=== PATIENT | male | born 1990 | race Two or more races ===

== ENCOUNTER 2016-08-14 16:27 | Emergency (ER) | payer OTHER ==
[2016-08-14 17:00] VITALS: BP 121/75; PULSE 77; TEMP 98.7; BMI 25.6
--- NOTE | 2016-08-14 17:25 | PDOC ---
[id number] No Limitations - History of Present Illness Initial Comments: 08/14/16 17:28 The patient is a '26 year-old male with a significant past medical history of gastritis who presents to the emergency department for evaluation of abdominal pain for the past 2 weeks. Patient reports epigastric abdominal pain, described as sharp in nature, intermittent and non-radiating with a 7/10 in severity with associated nausea and vomiting. Patient reports that he noted blood in his episode of emesis, for which he had never experienced before Patient denies new foods/sick contacts. Patient denies alcohol intake. No other complaints. He denies chest pain, cough, shortness of breath, headache He denies changes in bowel habits, dysuria, hematuria, urinary frequency/urgency , flank pain, testicular pain or penile discharge. <Maria G Vidal - Last Filed: 08/14/16 18:34> <Tank Chavez - Last Filed: 08/15/16 10:32> - General Chief Complaint: Pain Stated Complaint: ABD PAIN/VOMITING BLOOD Past History <Maria G Vidal - Last Filed: 08/14/16 18:34> - Past Medical History Anemia: No Asthma: Yes (albuterol) Cancer: No Cardiac Disorders: No CVA: No COPD: No CHF: No Dementia: No Diabetes: No GI Disorders: No Disorders: No HTN: No Hypercholesterolemia: No Kidney Stones: No Liver Disease: No Suicide Attempt (Hx): No Seizures: No Thyroid Disease: No - Surgical History Abdominal Surgery: No Appendectomy: No Cardiac Surgery: No Cholecystectomy: No Lung Surgery: No Neurologic Surgery: No Orthopedic Surgery: No - Reproductive History Testicular Surgery: No - Immunization History Td Vaccination: (unknown) TDAP Vaccination: (unknown) Immunization Up to Date: Yes - Psycho/Social/Smoking Cessation Hx Anxiety: Yes Suicidal Ideation: No Smoking Status: Yes Smoking History: Current every day smoker Years of Tobacco Use: 0 Have you smoked in the past 12 months: Yes Number of Cigarettes Smoked Daily: 10 Cigars Per Day: 0 Information on smoking cessation initiated: No 'Breaking Loose' booklet given: 04/21/14 Hx Alcohol Use: Yes (eun) Drug/Substance Use Hx: Yes (heroin/cocaine/marijuana) Substance Use Type: Cocaine, Heroin, Marijuana Hx Substance Use Treatment: Yes ([facility] 08/2013) <Tank Chavez - Last Filed: 08/15/16 10:32> - Past Medical History Allergies/Adverse Reactions: Allergies Allergy/AdvReac Type Severity Reaction Status Date / Time Fish Containing Products Allergy Severe Difficulty Verified 08/14/16 16:59 [Fish Product Derivatives] Breathing shellfish derived Allergy Severe Difficulty Verified 08/14/16 16:59 [Shellfish Derived] Breathing No Known Drug Allergies Allergy Verified 08/14/16 16:59 mushroom Allergy Severe Swelling Uncoded 08/14/16 16:59 NKDA Allergy Uncoded 08/14/16 16:59 Home Medications: Ambulatory Orders Albuterol Sulfate Inhaler - [Ventolin HFA Inhaler -] 2 inh PO Q4H PRN 09/11/13 Quetiapine Fumarate [Seroquel -] 100 mg PO HS #30 tab 04/23/14 Famotidine [Pepcid] 40 mg PO BID #30 tablet 08/14/16 Tramadol HCl [Ultram -] 50 mg PO Q6H #10 tablet MDD 4 08/14/16 Review of Systems - Review of Systems Able to Perform ROS?: Yes Comments:: 08/14/16 17:28 GENERAL/CONSTITUTIONAL: No fever or chills. No weakness. HEAD, EYES, EARS, NOSE AND THROAT: No change in vision. No ear pain or discharge. No sore throat. CARDIOVASCULAR: No chest pain or shortness of breath. RESPIRATORY: No cough, wheezing, or hemoptysis. GASTROINTESTINAL: Yes: +Abdominal Pain. +Nausea. +Vomiting. No diarrhea or constipation. GENITOURINARY: No dysuria, frequency, or change in urination. MUSCULOSKELETAL: No joint or muscle swelling or pain. No neck or back pain. SKIN: No rash NEUROLOGIC: No headache, vertigo, loss of consciousness, or change in strength/ sensation. ENDOCRINE: No increased thirst. No abnormal weight change. HEMATOLOGIC/LYMPHATIC: No anemia, easy bleeding, or history of blood clots. ALLERGIC/IMMUNOLOGIC: No hives or skin allergy. <Maria G Vidal - Last Filed: 08/14/16 18:34> *Physical Exam - Vital Signs Last Vital Signs Temp Pulse Resp BP Pulse Ox 98.7 F 77 18 121/75 100 08/14/16 16:56 08/14/16 16:56 08/14/16 16:56 08/14/16 16:56 08/14/16 16:56 - Physical Exam Comments: 08/14/16 17:28 GENERAL: Awake, alert, and fully oriented, in no acute distress HEAD: No signs of trauma EYES: PERRLA, EOMI, sclera anicteric, conjunctiva clear ENT: Auricles normal inspection, hearing grossly normal, nares patent, oropharynx clear without exudates. Moist mucosa NECK: Normal ROM, supple, no lymphadenopathy, JVD, or masses LUNGS: Breath sounds equal, clear to auscultation bilaterally. No wheezes, and no crackles HEART: Regular rate and rhythm, normal S1 and S2, no murmurs, rubs or gallops ABDOMEN: Soft, epigastric tenderness to palpation, normoactive bowel sounds. No guarding, no rebound. No masses EXTREMITIES: Normal range of motion, no edema. No clubbing or cyanosis. No cords, erythema, or tenderness NEUROLOGICAL: Cranial nerves II through XII grossly intact. Normal speech. RECTAL: Light brown stool in the rectal vault. No blood. <Maria G Vidal - Last Filed: 08/14/16 18:34> - Vital Signs Last Vital Signs Temp Pulse Resp BP Pulse Ox 98.7 F 77 18 121/75 100 08/14/16 16:56 08/14/16 16:56 08/14/16 16:56 08/14/16 16:56 08/14/16 16:56 <Tank Chavez - Last Filed: 08/15/16 10:32> ED Treatment Course - LABORATORY CBC & Chemistry Diagram: 08/14/16 18:47 08/14/16 18:47 <Tank Chavez - Last Filed: 08/15/16 10:32> Medical Decision Making - Medical Decision Making 08/14/16 18:35 Patient noted to have an appetite and requesting a turkey sandwich with mayonnaise, orange juice and fareed crackers. <aMria G Vidal - Last Filed: 08/14/16 18:34> *DC/Admit/Observation/Transfer - Attestations Scribe Attestion: 08/14/16 17:29 Documentation prepared by Maria G Vidal, acting as medical van driver for Tank Chavez MD. <VidalMaria G - Last Filed: 08/14/16 18:34> - Discharge Dispostion Admit: No <Tank Chavez - Last Filed: 08/15/16 10:32> Diagnosis at time of Disposition: Abdominal pain Qualifiers: Abdominal location: generalized Qualified Code(s): R10.84 - Generalized abdominal pain - Discharge Dispostion Disposition: HOME Condition at time of disposition: Stable - Prescriptions Prescriptions: Famotidine [Pepcid] 40 mg PO BID #30 tablet Tramadol HCl [Ultram -] 50 mg PO Q6H #10 tablet MDD 4 - Referrals Referrals: Filiberto Eason MD [Staff Physician] - - Patient Instructions Printed Discharge Instructions: DI for Abdominal Pain-Adult
[2016-08-14] MEDS ORDERED: SODIUM CHLORIDE 1,000 ML IV SCH (17:30)
[2016-08-14] MEDS ORDERED: FAMOTIDINE 20 MG/50 ML IVPB 50 ML IVPB ONE ×2 (18:11→18:19)
[2016-08-14 18:59] LABS: BASOPHIL 0.3 % (0-2.0); EOSINOPHIL 2.6 % (0-4.5); MCH 29.5 pg (25.7-33.7); MCHC 32.5 g/dl (32.0-35.9); MEAN PLT VOLUME 9.5 fl (7.5-11.1); NEUTROPHILS 66.5 % (42.8-82.8); PLATELET COUNT 246 K/MM3 (134-434); RDW 12.3 % (11.9-15.9); WHITE BLOOD COUNT 9.2 K/mm3 (4.0-10.0)
[2016-08-14 19:32] LABS: ALBUMIN 4.1 g/dl (3.4-5.0); ANION GAP 5 (8-16); BILIRUBIN,TOTAL 0.6 mg/dL (0.2-1.0); CALCIUM 9.1 mg/dL (8.5-10.1); CO2 30 mmol/L (21-32); CREATININE 0.7 mg/dL (0.7-1.3); GLUCOSE,RANDOM 111 mg/dL (74-106); SGOT/AST 17 U/L (15-37); SGPT/ALT 39 U/L (12-78); TOT PROT 7.6 g/dl (6.4-8.2)
[2016-08-14 19:33] LABS: ALK PHOS 61 U/L (45-117)
[2016-08-14 19:41] LABS: INR 1.14 (0.82-1.09); PROTHROMBIN TIME (PATIENT) 12.6 SEC (9.98-11.88)
[2016-08-14 19:43] LABS: ACTIVATED PTT 33.9 SECONDS (26.9-34.4)
--- NOTE | 2016-08-14 20:38 | PDOC ---
*Physical Exam - Vital Signs Last Vital Signs Temp Pulse Resp BP Pulse Ox 98.7 F 77 18 121/75 100 08/14/16 16:56 08/14/16 16:56 08/14/16 16:56 08/14/16 16:56 08/14/16 16:56 ED Treatment Course - LABORATORY CBC & Chemistry Diagram: 08/14/16 18:47 08/14/16 18:47 - ADDITIONAL ORDERS Additional order review: Laboratory Results 08/14/16 08/14/16 08/14/16 18:47 18:47 18:47 INR 1.14 PTT (Actin FS) 33.9 Sodium 139 Potassium 4.3 Chloride 104 Carbon Dioxide 30 Anion Gap 5 L BUN 11 D Creatinine 0.7 Creat Clearance w eGFR > 60 Random Glucose 111 H Calcium 9.1 Total Bilirubin 0.6 D AST 17 D ALT 39 D Alkaline Phosphatase 61 Total Protein 7.6 Albumin 4.1 Lipase 59 L Stool Occult Blood Blood Type B POSITIVE Antibody Screen Negative 08/14/16 17:48 INR PTT (Actin FS) Sodium Potassium Chloride Carbon Dioxide Anion Gap BUN Creatinine Creat Clearance w eGFR Random Glucose Calcium Total Bilirubin AST ALT Alkaline Phosphatase Total Protein Albumin Lipase Stool Occult Blood Negative Blood Type Antibody Screen 08/14/16 18:47 RBC 5.24 MCV 91.0 MCHC 32.5 RDW 12.3 MPV 9.5 D Neutrophils % 66.5 D Lymphocytes % 25.4 D Monocytes % 5.2 D Eosinophils % 2.6 D Basophils % 0.3 D - Medications Given in the ED: ED Medications Discontinued Medications Generic Name Dose Route Start Last Admin Trade Name Freq PRN Reason Stop Dose Admin Famotidine/Sodium Chloride 50 mls @ 100 mls/hr 08/14/16 18:11 08/14/16 18:54 Pepcid 20 Mg Premixed Ivpb - IVPB 08/14/16 18:40 100 mls/hr ONCE ONE Administration *DC/Admit/Observation/Transfer Diagnosis at time of Disposition: Abdominal pain Qualifiers: Abdominal location: generalized Qualified Code(s): R10.84 - Generalized abdominal pain - Discharge Dispostion Disposition: HOME Condition at time of disposition: Stable Admit: No - Referrals Referrals: Filiberto Eason MD [Staff Physician] - - Patient Instructions Printed Discharge Instructions: DI for Abdominal Pain-Adult
[2016-08-14] MEDS ORDERED: traMADol HCL 50 MG TABLET PO ONE (21:23)
[2016-08-14] MEDS ORDERED: traMADol HCL 50 MG TABLET ONE (21:36)
== END 2016-08-14 21:42 | disposition home or self-care (01) ==
LOC: JER 16:27
PROC: 3E033GC Introduction of Other Therapeutic Substance into Peripheral Vein, Percutaneous Approach (ICD-10-PCS; principal; 2016-08-14)
DX: R10.84 Generalized abdominal pain (principal); J45.909 Unspecified asthma, uncomplicated
CPT/HCPCS: 36415; 80053; 81003; 82272; 83690; 85025; 85610; 85730; 86850; 86900; 86901; 96365; 99282-25

== ENCOUNTER 2016-11-25 11:03 | Inpatient (IN) | payer OTHER ==
[2016-11-25 12:01] VITALS: BMI 25.7
--- NOTE | 2016-11-25 12:44 | HP ---
CIWA Score - CIWA Score Nausea/Vomitin-Mild Nausea/No Vomiting Muscle Tremors: 4-Moderate,w/Arms Extend Anxiety: 4-Mod. Anxious/Guarded Agitation: 1-Slight > Activity Paroxysmal Sweats: 1-Minimal Palms Moist Orientation: 1-Uncertain about Date Tacttile Disturbances: 1-Very Mild Itch/Numbness Auditory Disturbances: 1-Very Mild Visual Disturbances: 1-Very Mild Sensitivity Headache: 1-Very Mild CIWA-Ar Total Score: 16 Admission ROS BHS - HPI Chief Complaint: I can't keep away from it on my own, I need to be here, I need help Allergies/Adverse Reactions: Allergies Allergy/AdvReac Type Severity Reaction Status Date / Time Fish Containing Products Allergy Severe Difficulty Verified 08/14/16 16:59 [Fish Product Derivatives] Breathing shellfish derived Allergy Severe Difficulty Verified 08/14/16 16:59 [Shellfish Derived] Breathing No Known Drug Allergies Allergy Verified 08/14/16 16:59 mushroom Allergy Severe Swelling Uncoded 08/14/16 16:59 NKDA Allergy Uncoded 08/14/16 16:59 History of Present Illness: 26 yo gentleman here for detox from alcohol, cocaine and xanax. Patient using heroin but on methadone program at [facility] on 60mg, dosed today, goes daily - phone number: [phone], opens at 7:30am -10:30am Sunday (tomorrow). No seizures, does have black outs. This is one of multiple admissions, was also in [facility] [id number]. Exam Limitations: Clinical Condition - Ebola screening Have you traveled outside of the country in the last 21 days: No Have you had contact with anyone from an Ebola affected area: No Have you been sick,other than usual withdrawal symptoms: No Do you have a fever: No - Review of Systems Constitutional: Loss of Appetite, Malaise, Changes in sleep, Unexplained wgt Loss EENT: reports: Nose Congestion Respiratory: reports: No Symptoms reported Cardiac: reports: Chest Tightness GI: reports: No Symptoms Reported : reports: Frequency Musculoskeletal: reports: No Symptoms Reported Integumentary: reports: No Symptoms Reported Neuro: reports: Headache, Tremors, Weakness Endocrine: reports: No Symptoms Reported Hematology: reports: No Symptoms Reported Psychiatric: reports: Judgement Intact, Mood/Affect Appropiate, Orientated x3, Anxious Other Systems: Reviewed and Negative Patient History - Patient Medical History Hx Anemia: No Hx Asthma: Yes (albuterol) Hx Chronic Obstructive Pulmonary Disease (COPD): No Hx Cancer: No Hx Cardiac Disorders: No Hx Congestive Heart Failure: No Hx Hypertension: No Hx Hypercholesterolemia: No Hx Pacemaker: No HX Cerebrovascular Accident: No Hx Seizures: No Hx Dementia: No Hx Diabetes: No Hx Gastrointestinal Disorders: No Hx Liver Disease: No Hx Genitourinary Disorders: No Hx Sexually Transmitted Disorders: No Hx Renal Disease (ESRD): No Hx Thyroid Disease: No Hx Human Immunodeficiency Virus (HIV): No Hx Hepatitis C: No Hx Depression: Yes Hx Suicide Attempt: No Hx Schizophrenia: No - Patient Surgical History Past Surgical History: No Hx Neurologic Surgery: No Hx Cataract Extraction: No Hx Cardiac Surgery: No Hx Lung Surgery: No Hx Breast Surgery: No Hx Breast Biopsy: No Hx Abdominal Surgery: No Hx Appendectomy: No Hx Cholecystectomy: No Hx Genitourinary Surgery: No Hx Section: No Hx Orthopedic Surgery: No Anesthesia Reaction: No - PPD History Previous Implant?: Yes Documented Results: Negative w/proof Date: 09/15/13 Results: 0 MM PPD to be Administered?: Yes - Reproductive History Patient is a Female of Child Bearing Age (11 -55 yrs old): No (male) - Smoking Cessation Smoking history: Current every day smoker Have you smoked in the past 12 months: Yes Aproximately how many cigarettes per day: 4 Cigars Per Day: 0 Hx Chewing Tobacco Use: No Initiated information on smoking cessation: Yes 'Breaking Loose' booklet given: 11/25/16 (give on floor) - Substance & Tx. History Hx Alcohol Use: Yes Hx Substance Use: Yes Substance Use Type: Alcohol, Cocaine, Heroin, Tranquilizers Hx Substance Use Treatment: Yes (detox, [facility], rehab) - Substances Abused Alcohol Route: Oral Frequency: Daily Amount used: four 16oz beers Age of first use: 15 Date of Last Use: 11/24/16 Alprazolam (Xanax) Route: Oral Frequency: Daily Amount used: four 4mg sticks Age of first use: 26 Date of Last Use: 11/24/16 Heroin Route: Injection Frequency: Daily Amount used: 8 bags Age of first use: 21 Date of Last Use: 04/14/17 Cocaine Route: Inhalation Frequency: 3-6 times per week Amount used: 1 gm Age of first use: 23 Date of Last Use: 11/24/16 Family Disease History - Family Disease History Family Disease History: Diabetes: Grandparent (GMOTHER/), Mother (alive) , Heart Disease: Father (, ND, etoh), Mother, Other: Father, Mother, Brother (alive, no medical issues), Sister (alive, no medical) Admission Physical Exam [facility] - Vital Signs Vital Signs: Vital Signs - 24 hr 11/25/16 12:00 Temperature 97.5 F L Pulse Rate 64 Respiratory 20 Rate Blood Pressure 142/79 - Physical General Appearance: Yes: Nourished, Appropriately Dressed, Moderate Distress, Anxious HEENTM: Yes: Hearing grossly Normal, Normal ENT Inspection, Normocephalic, Normal Voice, Pharynx Normal, Nasal Congestion, Rhinorrhea Respiratory: Yes: Normal Breath Sounds, No Respiratory Distress Neck: Yes: No masses,lesions,Nodules, Supple Breast: Yes: Breast Exam Deferred Cardiology: Yes: Regular Rhythm, Regular Rate Abdominal: Yes: Soft Genitourinary: Yes: Frequency Back: Yes: Normal Inspection Musculoskeletal: Yes: full range of Motion, Gait Steady Extremities: Yes: Normal Inspection, Normal Range of Motion Neurological: Yes: Fully Oriented, Alert, Normal Mood/Affect, Normal Response Integumentary: Yes: Normal Color, Warm, Track [place] Lymphatic: Yes: Within Normal Limits - Diagnostic (1) Alcohol dependence with uncomplicated withdrawal Current Visit: Yes Status: Chronic (2) Sedative, hypnotic or anxiolytic dependence, uncomplicated Current Visit: Yes Status: Chronic (3) Methadone maintenance therapy patient Current Visit: Yes Status: Chronic Comment: [place] [phone] - [phone] -- open Sunday 7:30am-10:30am (4) Asthma Current Visit: Yes Status: Chronic Qualifiers: Asthma severity: mild intermittent Asthma complication type: uncomplicated Qualified Code(s): J45.20 - Mild intermittent asthma, uncomplicated (5) Nicotine dependence Current Visit: Yes Status: Chronic Qualifiers: Nicotine product type: cigarettes Substance use status: uncomplicated Qualified Code(s): F17.210 - Nicotine dependence, cigarettes, uncomplicated (6) Cocaine dependence Current Visit: Yes Status: Chronic Qualifiers: Substance use status: uncomplicated Qualified Code(s): F14.20 - Cocaine dependence, uncomplicated Cleared for Admission [facility] - Detox or Rehab [facility] Level of Care: Medically Managed Detox Regimen/Protocol: Librium [facility] Breath Alcohol Content Breath Alcohol Content: 0 Urine Drug Screen - Results Drug Screen Negative: No Urine Drug Screen Results: OPI-Opiates
[2016-11-25] MEDS ORDERED: P-EPHED 60MG/TRIPROLIDI 2.5MG TABLET PO PRN (12:57)
[2016-11-25] MEDS ORDERED: chlordiazePOXIDE HCL 25 MG CAPSULE PO ONE (12:57)
[2016-11-25] MEDS ORDERED: guaiFENesin/D-METHORPHAN HB 10 ML UNIT-DOSE CUPS PO PRN (12:57)
[2016-11-25] MEDS ORDERED: ACETAMINOPHEN 325 MG TABLET (FP) PO PRN (12:57)
[2016-11-25] MEDS ORDERED: MENTHOL/PHENOL 1 EACH UD MM PRN (12:57)
[2016-11-25] MEDS ORDERED: MAG HYDROX/AL HYDROX/SIMETH 30 ML UNIT-DOSE CUP PO PRN (12:57)
[2016-11-25] MEDS ORDERED: MAGNESIUM CITRATE 300 ML BOTTLE PO PRN (12:57)
[2016-11-25] MEDS ORDERED: LOPERAMIDE HCL 2 MG CAPSULE PO PRN (12:57)
[2016-11-25] MEDS ORDERED: MAGNESIUM HYDROX 2400MG/30ML ORAL SUSPENSION 30 ML CUP PO PRN (12:57)
[2016-11-25] MEDS: ALBUTEROL SO4 6.7 GM HFA INHALER IH PRN (17:02)
[2016-11-25] MEDS: chlordiazePOXIDE HCL 25 MG CAPSULE PO SCH ×2 (17:04→22:21)
[2016-11-25] MEDS: NICOTINE 14 MG/24 HOURS TOPICAL PATCH TD SCH (17:09)
[2016-11-25 17:22] LABS: URINE APPEARANCE CLEAR; URINE BILIRUBIN NEGATIVE (NEGATIVE); URINE BLOOD NEGATIVE (NEGATIVE); URINE COLOR DKYELLOW; URINE GLUCOSE (UA) NEGATIVE (NEGATIVE); URINE KETONE TRACE (NEGATIVE); URINE LEUK ESTERASE NEGATIVE (NEGATIVE); URINE NITRITE NEGATIVE (NEGATIVE); URINE PROTEIN NEGATIVE (NEGATIVE); URINE UROBILINOGEN NEGATIVE E.U./dl (0.2-1.0)
[2016-11-25] MEDS: THIAMINE HCL 100 MG TABLET (FP) PO SCH (22:21)
[2016-11-25] MEDS: diphenhydrAMINE HCL 50 MG CAPSULE PO PRN (23:42)
[2016-11-26] MEDS: chlordiazePOXIDE HCL 25 MG CAPSULE PO SCH ×4 (05:23→22:40)
[2016-11-26] MEDS: IBUPROFEN 400 MG TABLET (FP) PO PRN (05:24)
[2016-11-26 10:49] LABS: MCH 29.7 pg (25.7-33.7); MCHC 33.2 g/dl (32.0-35.9); MEAN CELL VOLUME 89.7 fl (80-96); MEAN PLT VOLUME 9.3 fl (7.5-11.1); PLATELET COUNT 201 K/MM3 (134-434); RDW 11.9 % (11.9-15.9); WHITE BLOOD COUNT 6.5 K/mm3 (4.0-10.0)
[2016-11-26] MEDS: PRENATAL VITAMINS W/ FOLIC ACID TABLET (FP) PO SCH (10:55)
[2016-11-26] MEDS: NICOTINE 14 MG/24 HOURS TOPICAL PATCH TD SCH (10:56)
[2016-11-26 11:05] LABS: ALBUMIN 2.9 g/dl (3.4-5.0); ANION GAP 7 (8-16); CALCIUM 8.1 mg/dL (8.5-10.1); CO2 30 mmol/L (21-32); GLUCOSE,RANDOM 93 mg/dL (74-106)
[2016-11-26 11:09] LABS: ALK PHOS 54 U/L (45-117); BILIRUBIN,TOTAL 0.5 mg/dL (0.2-1.0); COCKROFT - GAULT 151.19; CREATININE 0.7 mg/dL (0.7-1.3); SGOT/AST 15 U/L (15-37); SGPT/ALT 36 U/L (12-78); TOT PROT 5.7 g/dl (6.4-8.2)
[2016-11-26] MEDS ORDERED: METHADONE HCL 10 MG TABLET PO ONE (11:11)
[2016-11-26] MEDS ORDERED: METHADONE 40 MG, METHADONE 30 MG PO ONE (11:30)
[2016-11-26] MEDS ORDERED: METHADONE HCL 40 MG DISPERSABLE TABLET ONE (11:36)
[2016-11-26] MEDS ORDERED: METHADONE HCL 10 MG TABLET ONE (11:37)
[2016-11-26] MEDS: ALBUTEROL SO4 6.7 GM HFA INHALER IH PRN ×3 (11:39→22:45)
--- NOTE | 2016-11-26 13:09 | PN ---
[facility] CIWA - CIWA Score Nausea/Vomitin Muscle Tremors: 3 Anxiety: 3 Agitation: 2 Paroxysmal Sweats: 1-Minimal Palms Moist Orientation: 0-Oriented Tacttile Disturbances: 1-Very Mild Itch/Numbness Auditory Disturbances: 1-Very Mild Visual Disturbances: 1-Very Mild Sensitivity Headache: 2-Mild CIWA-Ar Total Score: 17 BHS Progress Note (SOAP) Subjective: ALERT,IRRITABLE,ANXIOUS,INTERRUPTED SLEEP,TREMOR,PAIN IN THE BODY AND BACK Objective: 11/26/16 13:07 Vital Signs Temperature 98.2 F 11/26/16 10:44 Pulse Rate 56 L 11/26/16 10:44 Respiratory Rate 16 11/26/16 10:44 Blood Pressure 124/73 11/26/16 10:44 O2 Sat by Pulse Oximetry (%) EKG SINUS BRADYCARDIA RATE 54/MIN NO CHEST PAIN,NO SOB,NO DIZZINESS Laboratory Last Values WBC 6.5 K/mm3 (4.0-10.0) 11/26/16 08:00 RBC 4.01 M/mm3 (4.00-5.60) D 11/26/16 08:00 Hgb 11.9 GM/dL (11.7-16.9) D 11/26/16 08:00 Hct 36.0 % (35.4-49) D 11/26/16 08:00 MCV 89.7 fl (80-96) 11/26/16 08:00 MCHC 33.2 g/dl (32.0-35.9) 11/26/16 08:00 RDW 11.9 % (11.9-15.9) 11/26/16 08:00 Plt Count 201 K/MM3 (134-434) 11/26/16 08:00 MPV 9.3 fl (7.5-11.1) 11/26/16 08:00 Sodium 140 mmol/L (136-145) 11/26/16 08:00 Potassium 4.0 mmol/L (3.5-5.1) 11/26/16 08:00 Chloride 103 mmol/L (98-107) 11/26/16 08:00 Carbon Dioxide 30 mmol/L (21-32) 11/26/16 08:00 Anion Gap 7 (8-16) L 11/26/16 08:00 BUN 9 mg/dL (7-18) 11/26/16 08:00 Creatinine 0.7 mg/dL (0.7-1.3) 11/26/16 08:00 Creat Clearance w eGFR > 60 (>60) 11/26/16 08:00 Random Glucose 93 mg/dL (74-106) 11/26/16 08:00 Calcium 8.1 mg/dL (8.5-10.1) L 11/26/16 08:00 Total Bilirubin 0.5 mg/dL (0.2-1.0) 11/26/16 08:00 AST 15 U/L (15-37) 11/26/16 08:00 ALT 36 U/L (12-78) 11/26/16 08:00 Alkaline Phosphatase 54 U/L (45-117) 11/26/16 08:00 Total Protein 5.7 g/dl (6.4-8.2) L D 11/26/16 08:00 Albumin 2.9 g/dl (3.4-5.0) L D 11/26/16 08:00 Urine Color Dkyellow 11/25/16 17:09 Urine Appearance Clear 11/25/16 17:09 Urine pH 6.0 (5.0-8.0) 11/25/16 17:09 Ur Specific [place] 1.028 (1.001-1.035) 11/25/16 17:09 Urine Protein Negative (NEGATIVE) 11/25/16 17:09 Urine Glucose (UA) Negative (NEGATIVE) 11/25/16 17:09 Urine Ketones Trace (NEGATIVE) H 11/25/16 17:09 Urine Blood Negative (NEGATIVE) 11/25/16 17:09 Urine Nitrite Negative (NEGATIVE) 11/25/16 17:09 Urine Bilirubin Negative (NEGATIVE) 11/25/16 17:09 Urine Urobilinogen Negative E.U./dl (0.2-1.0) 11/25/16 17:09 Ur Leukocyte Esterase Negative (NEGATIVE) 11/25/16 17:09 RPR Titer Nonreactive (NONREACTIVE) 11/26/16 08:00 Assessment: 11/26/16 13:09 WITHDRAWAL SYMPTOM Plan: CONTINUE DETOX
[2016-11-26] MEDS: hydrOXYzine PAMOATE 50 MG CAPSULE (FP) PO PRN (13:50)
[2016-11-26] MEDS: chlordiazePOXIDE HCL 25 MG CAPSULE PO PRN (13:50)
[2016-11-26] MEDS: THIAMINE HCL 100 MG TABLET (FP) PO SCH (22:40)
[2016-11-26] MEDS: diphenhydrAMINE HCL 50 MG CAPSULE PO PRN (22:41)
[2016-11-27] MEDS: diphenhydrAMINE HCL 50 MG CAPSULE PO PRN ×2 (02:46→22:35)
[2016-11-27] MEDS: IBUPROFEN 400 MG TABLET (FP) PO PRN ×3 (02:48→23:51)
[2016-11-27] MEDS: LIDOCAINE VISCOUS 2% ORAL/TOP 20 ML UNIT-DOSE CUP MM PRN ×3 (02:48→23:53)
[2016-11-27] MEDS: ALBUTEROL SO4 6.7 GM HFA INHALER IH PRN ×3 (02:48→19:30)
[2016-11-27] MEDS ORDERED: METHADONE HCL 40 MG DISPERSABLE TABLET ONE (04:54)
[2016-11-27] MEDS ORDERED: METHADONE HCL 10 MG TABLET ONE (04:55)
[2016-11-27] MEDS: chlordiazePOXIDE HCL 25 MG CAPSULE PO SCH ×2 (05:47→10:30)
[2016-11-27] MEDS: METHADONE 40 MG, METHADONE 30 MG PO SCH (05:48)
[2016-11-27] MEDS ORDERED: METHADONE HCL 10 MG TABLET PO SCH ×2 (06:00)
--- NOTE | 2016-11-27 08:46 | EKG ---
Test Reason : Blood Pressure : / mmHG Vent. Rate : 054 BPM Atrial Rate : 054 BPM P-R Int : 154 ms QRS Dur : 120 ms QT Int : 450 ms P-R-T Axes : 075 018 054 degrees QTc Int : 426 ms SINUS BRADYCARDIA POSSIBLE ANTERIOR INFARCT , AGE UNDETERMINED ABNORMAL ECG WHEN COMPARED WITH ECG OF 24-JUL-2013 15:03, COMPARED TO EKG NO SIGNIFICANT CHANGE IS FOUND Confirmed by MIGUEL LUO MD ([id number]) on 11/27/2016 8:46:09 AM Referred By: Confirmed By:MIGUEL LUO MD
--- NOTE | 2016-11-27 10:13 | PN ---
[facility] CIWA - CIWA Score Nausea/Vomitin Muscle Tremors: 3 Anxiety: 2 Agitation: 2 Paroxysmal Sweats: 1-Minimal Palms Moist Orientation: 0-Oriented Tacttile Disturbances: 1-Very Mild Itch/Numbness Auditory Disturbances: 1-Very Mild Visual Disturbances: 1-Very Mild Sensitivity Headache: 2-Mild CIWA-Ar Total Score: 16 S Progress Note (SOAP) Subjective: ALERT,IRRITABLE,ANXIOUS,INTERRUPTED SLEEP,TREMOR Objective: 11/27/16 10:12 Vital Signs Temperature 96.3 F L 11/27/16 06:00 Pulse Rate 65 11/27/16 06:00 Respiratory Rate 16 11/27/16 06:00 Blood Pressure 105/66 11/27/16 06:00 O2 Sat by Pulse Oximetry (%) Laboratory Last Values WBC 6.5 K/mm3 (4.0-10.0) 11/26/16 08:00 RBC 4.01 M/mm3 (4.00-5.60) D 11/26/16 08:00 Hgb 11.9 GM/dL (11.7-16.9) D 11/26/16 08:00 Hct 36.0 % (35.4-49) D 11/26/16 08:00 MCV 89.7 fl (80-96) 11/26/16 08:00 MCHC 33.2 g/dl (32.0-35.9) 11/26/16 08:00 RDW 11.9 % (11.9-15.9) 11/26/16 08:00 Plt Count 201 K/MM3 (134-434) 11/26/16 08:00 MPV 9.3 fl (7.5-11.1) 11/26/16 08:00 Sodium 140 mmol/L (136-145) 11/26/16 08:00 Potassium 4.0 mmol/L (3.5-5.1) 11/26/16 08:00 Chloride 103 mmol/L (98-107) 11/26/16 08:00 Carbon Dioxide 30 mmol/L (21-32) 11/26/16 08:00 Anion Gap 7 (8-16) L 11/26/16 08:00 BUN 9 mg/dL (7-18) 11/26/16 08:00 Creatinine 0.7 mg/dL (0.7-1.3) 11/26/16 08:00 Creat Clearance w eGFR > 60 (>60) 11/26/16 08:00 Random Glucose 93 mg/dL (74-106) 11/26/16 08:00 Calcium 8.1 mg/dL (8.5-10.1) L 11/26/16 08:00 Total Bilirubin 0.5 mg/dL (0.2-1.0) 11/26/16 08:00 AST 15 U/L (15-37) 11/26/16 08:00 ALT 36 U/L (12-78) 11/26/16 08:00 Alkaline Phosphatase 54 U/L (45-117) 11/26/16 08:00 Total Protein 5.7 g/dl (6.4-8.2) L D 11/26/16 08:00 Albumin 2.9 g/dl (3.4-5.0) L D 11/26/16 08:00 Urine Color Dkyellow 11/25/16 17:09 Urine Appearance Clear 11/25/16 17:09 Urine pH 6.0 (5.0-8.0) 11/25/16 17:09 Ur Specific [place] 1.028 (1.001-1.035) 11/25/16 17:09 Urine Protein Negative (NEGATIVE) 11/25/16 17:09 Urine Glucose (UA) Negative (NEGATIVE) 11/25/16 17:09 Urine Ketones Trace (NEGATIVE) H 11/25/16 17:09 Urine Blood Negative (NEGATIVE) 11/25/16 17:09 Urine Nitrite Negative (NEGATIVE) 11/25/16 17:09 Urine Bilirubin Negative (NEGATIVE) 11/25/16 17:09 Urine Urobilinogen Negative E.U./dl (0.2-1.0) 11/25/16 17:09 Ur Leukocyte Esterase Negative (NEGATIVE) 11/25/16 17:09 RPR Titer Nonreactive (NONREACTIVE) 11/26/16 08:00 Assessment: 11/27/16 10:13 WITHDRAWAL SYMPTOM Plan: CONTINUE DETOX
[2016-11-27] MEDS: PRENATAL VITAMINS W/ FOLIC ACID TABLET (FP) PO SCH (10:30)
[2016-11-27] MEDS: NICOTINE 14 MG/24 HOURS TOPICAL PATCH TD SCH (10:31)
--- NOTE | 2016-11-27 13:03 | CONSULT ---
[facility] Psychiatric Consult - Data Date of interview: 11/27/16 Admission source: [facility] Identifying data: This is 26 years old male with no psychiatric hospitalization history intoxicated with: Alcohol, Xanax, Opioids and Cocaine Substance Abuse History: Smoking history: Current every day smoker. Have you smoked in the past 12 months: Yes. Aproximately how many cigarettes per day: 4. Cigars Per Day: 0. Hx Chewing Tobacco Use: No. Initiated information on smoking cessation: Yes. 'Breaking Loose' booklet given: 11/25/16 (give on floor ). - Substance & Tx. History. Hx Alcohol Use: Yes. Hx Substance Use: Yes. Substance Use Type: Alcohol, Cocaine, Heroin, Tranquilizers. Hx Substance Use Treatment: Yes (detox, [facility], rehab). - Substances Abused. Alcohol. Route: Oral. Frequency: Daily. Amount used: four 16oz beers. Age of first use: 15. Date of Last Use: 11/24/16. Alprazolam (Xanax). Route: Oral. Frequency: Daily. Amount used: four 4mg sticks. Age of first use: 26. Date of Last Use: 11/24/16. Heroin. Route: Injection. Frequency: Daily. Amount used: 8 bags. Age of first use: 21. Date of Last Use: 11/24/16. Cocaine. Route: Inhalation. Frequency: 3-6 times per week. Amount used: 1 gm. Age of first use: 23. Date of Last Use: 11/24/16 Medical History: Asthma, MMTP history Psychiatric History: Denies Physical/Sexual Abuse/Trauma History: Denies Additional Comment: [id number]. Detox Unit Care Mental Status Exam - Mental Status Exam Alert and Oriented to: Person Cognitive Function: Fair Patient Appearance: Unkempt Mood: Sad Affect: Flat Patient Behavior: Sedated, Cooperative Voice Loudness: Mildly Soft/Quiet Thought Process: Circumstantial Thought Disorder: Being Controlled Hallucinations: Denies Suicidal Ideation: Denies Homicidal Ideation: Denies Insight/Judgement: Fair Sleep: Difficulty falling asleep Appetite: Fair Muscle strength/Tone: Mild Hypotonicity Gait/Station: Shuffling Additional Comments: [id number]. Detox Unit Care Psychiatric Findings - Problem List ([place] 1, 2,3) (1) Alcohol dependence Current Visit: Yes Status: Acute (2) Alcohol dependence with uncomplicated withdrawal Current Visit: Yes Status: Chronic (3) Cocaine dependence Current Visit: Yes Status: Chronic Qualifiers: Substance use status: uncomplicated Qualified Code(s): F14.20 - Cocaine dependence, uncomplicated (4) Methadone maintenance therapy patient Current Visit: Yes Status: Chronic Comment: [facility] - [phone] -- open Sunday 7:30am-10:30am (5) Nicotine dependence Current Visit: Yes Status: Chronic Qualifiers: Nicotine product type: cigarettes Substance use status: uncomplicated Qualified Code(s): F17.210 - Nicotine dependence, cigarettes, uncomplicated (6) Sedative, hypnotic or anxiolytic dependence, uncomplicated Current Visit: Yes Status: Chronic (7) Marijuana abuse Current Visit: Yes Status: Resolved (8) Marijuana dependence Current Visit: Yes Status: Resolved (9) Drug-induced mood disorder Current Visit: No Status: Suspected (10) Opioid dependence Current Visit: No Status: Acute - Initial Treatment Plan Initial Treatment Plan: [id number]. Detox Unit Care
[2016-11-27] MEDS: chlordiazePOXIDE HCL 25 MG CAPSULE PO PRN (14:00)
[2016-11-27] MEDS: chlordiazePOXIDE 5 MG CAPSULE PO SCH ×2 (16:59→22:35)
[2016-11-27] MEDS ORDERED: ALBUTEROL SO4 2.5/IPRATROPIUM 0.5 INH SOL 3 ML VIAL.NEB. NEB PRN (21:25)
[2016-11-27] MEDS: THIAMINE HCL 100 MG TABLET (FP) PO SCH (22:35)
[2016-11-28] MEDS: diphenhydrAMINE HCL 50 MG CAPSULE PO PRN ×2 (00:44→22:16)
[2016-11-28] MEDS: ALBUTEROL SO4 6.7 GM HFA INHALER IH PRN ×2 (00:45→10:24)
[2016-11-28] MEDS ORDERED: METHADONE HCL 10 MG TABLET ONE (03:12)
[2016-11-28] MEDS ORDERED: METHADONE HCL 40 MG DISPERSABLE TABLET ONE (03:12)
[2016-11-28] MEDS: chlordiazePOXIDE 5 MG CAPSULE PO SCH ×2 (05:47→10:23)
[2016-11-28] MEDS: METHADONE 40 MG, METHADONE 30 MG PO SCH (05:48)
--- NOTE | 2016-11-28 10:09 | PN ---
[facility] Progress Note (SOAP) Subjective: ALERT,IRRITABLE,ANXIOUS,PAIN IN THE BACK Objective: 11/28/16 10:08 Vital Signs Temperature 96.4 F L 11/28/16 10:00 Pulse Rate 68 11/28/16 10:00 Respiratory Rate 16 11/28/16 10:00 Blood Pressure 136/66 11/28/16 10:00 O2 Sat by Pulse Oximetry (%) 11/28/16 10:10 Assessment: 11/28/16 10:10 WITHDRAWAL SYMPTOM Plan: CONTINUE DETOX,DISCHARGE IN AM
[2016-11-28] MEDS: hydrOXYzine PAMOATE 50 MG CAPSULE (FP) PO PRN ×3 (10:23→19:45)
[2016-11-28] MEDS: PRENATAL VITAMINS W/ FOLIC ACID TABLET (FP) PO SCH (10:23)
[2016-11-28] MEDS: IBUPROFEN 400 MG TABLET (FP) PO PRN ×3 (10:28→22:17)
[2016-11-28] MEDS ORDERED: NICOTINE 21 MG/24 HOURS TOPICAL PATCH TD SCH (11:15)
[2016-11-28] MEDS: METHYL SALICYLATE/MENTHOL OINT 30 GM TUBE TP SCH ×2 (12:07→23:17)
[2016-11-28] MEDS: NICOTINE 14 MG/24 HOURS TOPICAL PATCH TD SCH (12:08)
[2016-11-28] MEDS: chlordiazePOXIDE HCL 10 MG CAPSULE PO SCH ×2 (17:47→22:16)
[2016-11-28] MEDS: THIAMINE HCL 100 MG TABLET (FP) PO SCH (22:16)
[2016-11-28 23:18] VITALS: TEMP 98.4
[2016-11-29] MEDS: diphenhydrAMINE HCL 50 MG CAPSULE PO PRN (01:15)
[2016-11-29] MEDS: ALBUTEROL SO4 6.7 GM HFA INHALER IH PRN (03:46)
[2016-11-29] MEDS: IBUPROFEN 400 MG TABLET (FP) PO PRN (03:50)
[2016-11-29] MEDS: hydrOXYzine PAMOATE 50 MG CAPSULE (FP) PO PRN ×2 (03:53→06:59)
[2016-11-29] MEDS ORDERED: METHADONE HCL 40 MG DISPERSABLE TABLET ONE (04:50)
[2016-11-29] MEDS ORDERED: METHADONE HCL 10 MG TABLET ONE (04:50)
[2016-11-29] MEDS: chlordiazePOXIDE HCL 10 MG CAPSULE PO SCH (05:40)
[2016-11-29 05:51] VITALS: BP 115/68; PULSE 79
[2016-11-29] MEDS: METHADONE 40 MG, METHADONE 30 MG PO SCH (06:56)
--- NOTE | 2016-11-29 08:45 | PN ---
S Progress Note (SOAP) Subjective: ALERT,NO COMPLAINT Objective: 11/29/16 08:43 Vital Signs Temperature 98.4 F 11/29/16 05:51 Pulse Rate 79 11/29/16 05:51 Respiratory Rate 18 11/29/16 05:51 Blood Pressure 115/68 11/29/16 05:51 O2 Sat by Pulse Oximetry (%) Assessment: 11/29/16 08:43 DETOX COMPLETED,NO WITHDRAWAL SYMPTOM Plan: DISCHARGE TODAY,FOLLOW UP WITH AFTER CARE PROGRAM ARRANGEMENT
--- NOTE | 2016-11-29 08:47 | DS ---
[facility] Detox Discharge Summary Admission Date: 11/25/16 Discharge Date: 11/29/16 - History Present History: Alcohol Dependence, Cocaine Dependence, Sedative Dependence, MMTP Additional Comments: FOLLOW UP WITH AFTER CARE PROGRAM ARRANGEMENT AND PMD FOR MEDICAL PROBLEM Pertinent Past History: ASTHMA PTSD MMTP NICOTINE DEPENDENCE - Physical Exam Results Vital Signs: Vital Signs Temperature 98.4 F 11/29/16 05:51 Pulse Rate 79 11/29/16 05:51 Respiratory Rate 18 11/29/16 05:51 Blood Pressure 115/68 11/29/16 05:51 O2 Sat by Pulse Oximetry (%) Pertinent Admission Physical Exam Findings: WITHDRAWAL SYMPTOM - Treatment Hospital Course: Detox Protocol Followed, Detoxed Safely, Responded well, Discharged Condition Good Patient has Accepted a Rehab Referral to: DECLINED - Medication Discharge Medications: Ambulatory Orders Albuterol Sulfate Inhaler - [Ventolin HFA Inhaler -] 2 inh PO Q4H PRN 09/11/13 - Diagnosis (1) Alcohol dependence with uncomplicated withdrawal Current Visit: Yes Status: Chronic (2) Asthma Current Visit: Yes Status: Chronic Qualifiers: Asthma severity: mild intermittent Asthma complication type: uncomplicated Qualified Code(s): J45.20 - Mild intermittent asthma, uncomplicated (3) Cocaine dependence Current Visit: Yes Status: Chronic Qualifiers: Substance use status: uncomplicated Qualified Code(s): F14.20 - Cocaine dependence, uncomplicated (4) Methadone maintenance therapy patient Current Visit: Yes Status: Chronic (5) Nicotine dependence Current Visit: Yes Status: Chronic Qualifiers: Nicotine product type: cigarettes Substance use status: uncomplicated Qualified Code(s): F17.210 - Nicotine dependence, cigarettes, uncomplicated (6) Sedative, hypnotic or anxiolytic dependence, uncomplicated Current Visit: Yes Status: Chronic - AMA Did Patient Leave Against Medical Advice: No
== END 2016-11-29 10:15 | disposition home or self-care (01) | DRG 773 ==
LOC: YASAS 11:03 → Y6N 14:48
PROVIDERS: ADMIT Internal Medicine; ATTEND Internal Medicine Addiction Medicine
PROC: HZ2ZZZZ Detoxification Services for Substance Abuse Treatment (ICD-10-PCS; principal; 2016-11-29)
DX: F11.20 Opioid dependence, uncomplicated (principal); F13.230 Sedative, hypnotic or anxiolytic dependence with withdrawal, uncomplicated; F10.230 Alcohol dependence with withdrawal, uncomplicated; F14.20 Cocaine dependence, uncomplicated; F12.20 Cannabis dependence, uncomplicated; F19.24 Other psychoactive substance dependence with psychoactive substance-induced mood disorder; F17.210 Nicotine dependence, cigarettes, uncomplicated; J45.20 Mild intermittent asthma, uncomplicated
CPT/HCPCS: 36415; 80053; 81003; 85027; 86593; 93005; 93010; 94640

== ENCOUNTER 2017-05-23 10:57 | Inpatient (IN) | payer MEDICARE, OTHER ==
[2017-05-23 13:17] VITALS: BMI 29.9
--- NOTE | 2017-05-23 17:28 | HP ---
CIWA Score - CIWA Score Nausea/Vomitin-Mild Nausea/No Vomiting Muscle Tremors: 3 Anxiety: 4-Mod. Anxious/Guarded Agitation: 3 Paroxysmal Sweats: 1-Minimal Palms Moist Orientation: 1-Uncertain about Date Tacttile Disturbances: 0-None Auditory Disturbances: 0-None Visual Disturbances: 0-None Headache: 1-Very Mild CIWA-Ar Total Score: 14 Admission ROS S - HPI Chief Complaint: withdrawal sx Allergies/Adverse Reactions: Allergies Allergy/AdvReac Type Severity Reaction Status Date / Time Fish Containing Products Allergy Severe Difficulty Verified 05/23/17 15:11 [Fish Product Derivatives] Breathing shellfish derived Allergy Severe Difficulty Verified 05/23/17 15:11 [Shellfish Derived] Breathing No Known Drug Allergies Allergy Verified 05/23/17 15:11 mushroom Allergy Severe Swelling Uncoded 05/23/17 15:11 NKDA Allergy Uncoded 05/23/17 15:11 History of Present Illness: 27 years old male with long history of alcohol cocaine marijuana nicotine dependence has asthma and depression is admitted to detox Exam Limitations: No Limitations - Ebola screening Have you traveled outside of the country in the last 21 days: No Have you had contact with anyone from an Ebola affected area: No Have you been sick,other than usual withdrawal symptoms: No Do you have a fever: No - Review of Systems Constitutional: Changes in sleep, Weight Stable EENT: reports: No Symptoms Reported Respiratory: reports: SOB with Exertion Cardiac: reports: No Symptoms Reported GI: reports: Nausea, Poor Fluid Intake, Abdominal cramping : reports: No Symptoms Reported Musculoskeletal: reports: Back Pain, Joint Pain, Muscle Pain, Neck Pain Integumentary: reports: No Symptoms Reported Neuro: reports: Tremors Endocrine: reports: No Symptoms Reported Hematology: reports: No Symptoms Reported Psychiatric: reports: Judgement Intact, Anxious, Depressed Other Systems: Reviewed and Negative Patient History - Patient Medical History Hx Anemia: No Hx Asthma: Yes Hx Chronic Obstructive Pulmonary Disease (COPD): No Hx Cancer: No Hx Cardiac Disorders: No Hx Congestive Heart Failure: No Hx Hypertension: No Hx Hypercholesterolemia: No Hx Pacemaker: No HX Cerebrovascular Accident: No Hx Seizures: No Hx Dementia: No Hx Diabetes: No Hx Gastrointestinal Disorders: No Hx Liver Disease: No Hx Genitourinary Disorders: No Hx Sexually Transmitted Disorders: No Hx Renal Disease (ESRD): No Hx Thyroid Disease: No Hx Human Immunodeficiency Virus (HIV): No Hx Hepatitis C: No Hx Depression: Yes Hx Suicide Attempt: No Hx Bipolar Disorder: No Hx Schizophrenia: No - Patient Surgical History Past Surgical History: No Hx Neurologic Surgery: No Hx Cataract Extraction: No Hx Cardiac Surgery: No Hx Lung Surgery: No Hx Breast Surgery: No Hx Breast Biopsy: No Hx Abdominal Surgery: No Hx Appendectomy: No Hx Cholecystectomy: No Hx Genitourinary Surgery: No Hx Orthopedic Surgery: No - PPD History Previous Implant?: Yes Documented Results: Negative w/proof Implanted On Prior R Admission?: Yes Date: 11/27/16 Results: 0 MM PPD to be Administered?: No - Smoking Cessation Smoking history: Current every day smoker Have you smoked in the past 12 months: Yes Aproximately how many cigarettes per day: 4 Cigars Per Day: 0 Hx Chewing Tobacco Use: No Initiated information on smoking cessation: Yes 'Breaking Loose' booklet given: 05/23/17 - Substance & Tx. History Hx Alcohol Use: Yes Hx Substance Use: Yes Substance Use Type: Alcohol, Cocaine, Marijuana, Opiates Hx Substance Use Treatment: Yes (11/25-11/29/16 [facility] - Substances Abused Heroin Route: Inhalation Frequency: Daily Amount used: 8-10 bags Age of first use: 23 Date of Last Use: 05/20/17 Cocaine Route: Inhalation Frequency: Daily Amount used: $100-150 Age of first use: 23 Date of Last Use: 05/20/17 Alprazolam (Xanax) Route: Oral Frequency: Daily Amount used: 6-8mg Age of first use: 26 Date of Last Use: 05/22/17 Alcohol Route: Oral Frequency: Daily Amount used: rum(1 pint)/cognac(1/2 pint) Age of first use: 17 Date of Last Use: 05/22/17 Marijuana/Hashish Route: Smoking Frequency: 1-2 times per week Amount used: $10 Age of first use: 11 Date of Last Use: 05/22/17 Family Disease History - Family Disease History Family Disease History: Diabetes: Grandparent (GMOTHER/), Mother (alive) , Heart Disease: Father (, [place], etoh), Mother, Other: Father, Mother, Brother (alive, no medical issues), Sister (alive, no medical) [facility] - Vital Signs Vital Signs: Vital Signs - 24 hr 05/23/17 13:15 Temperature 97.3 F L Pulse Rate 61 Respiratory 20 Rate Blood Pressure 135/66 - Physical General Appearance: Yes: Nourished, Appropriately Dressed, Mild Distress, Tremorous, Irritable, Sweating, Anxious HEENTM: Yes: Hearing grossly Normal, Normal ENT Inspection, Normocephalic, Normal Voice Respiratory: Yes: Chest Non-Tender, Lungs Clear, Normal Breath Sounds, No Respiratory Distress, No Accessory Muscle Use Neck: Yes: Supple, Trachea in good position Breast: Yes: Breasts Symetrical Cardiology: Yes: Regular Rhythm, Regular Rate, S1, S2 Abdominal: Yes: Non Tender, Soft, Increased Bowel Sounds Genitourinary: Yes: Within Normal Limits Musculoskeletal: Yes: full range of Motion, Gait Steady, Back pain, Muscle Pain Extremities: Yes: Normal Inspection, Normal Range of Motion, Non-Tender, Tremors Neurological: Yes: Alert, Motor Strength 5/5, Normal Response, Depressed Affect Integumentary: Yes: Warm Lymphatic: Yes: Within Normal Limits - Diagnostic (1) Alcohol dependence with uncomplicated withdrawal Current Visit: Yes Status: Acute (2) Asthma Current Visit: Yes Status: Chronic Qualifiers: Asthma severity: mild Asthma complication type: uncomplicated Qualified Code(s): - (3) Methadone maintenance therapy patient Current Visit: Yes Status: Chronic Comment: [place] [facility]mg - [phone] -- open Sunday 7:30am-10:30am (4) Nicotine dependence Current Visit: Yes Status: Acute Qualifiers: Nicotine product type: cigarettes Substance use status: in withdrawal Qualified Code(s): F17.213 - Nicotine dependence, cigarettes, with withdrawal; F17.213 - Nicotine dependence, cigarettes, with withdrawal (5) Cocaine dependence, uncomplicated Current Visit: Yes Status: Chronic (6) Cannabis dependence, uncomplicated Current Visit: Yes Status: Chronic Cleared for Admission [facility] - [facility]ox [facility]hab [facility] Level of Care: Medically Managed Detox Regimen/Protocol: [facility] Breath Alcohol Content Breath Alcohol Content: 0 Urine Drug Screen - Results Urine Drug Screen Results: THC-Marijuana, ANTHONY-Cocaine, OPI-Opiates, MTD- Methadone
[2017-05-23] MEDS ORDERED: MAGNESIUM HYDROX 2400MG/30ML ORAL SUSPENSION 30 ML CUP PO PRN (17:32)
[2017-05-23] MEDS ORDERED: MAG HYDROX/AL HYDROX/SIMETH 30 ML UNIT-DOSE CUP PO PRN (17:32)
[2017-05-23] MEDS ORDERED: MENTHOL/PHENOL 1 EACH UD MM PRN (17:32)
[2017-05-23] MEDS ORDERED: P-EPHED 60MG/TRIPROLIDI 2.5MG TABLET PO PRN (17:32)
[2017-05-23] MEDS ORDERED: NICOTINE POLACRILEX 2 MG GUM BC PRN (17:32)
[2017-05-23] MEDS ORDERED: MAGNESIUM CITRATE 300 ML BOTTLE PO PRN (17:32)
[2017-05-23] MEDS ORDERED: guaiFENesin/D-METHORPHAN HB 10 ML UNIT-DOSE CUPS PO PRN (17:32)
[2017-05-23] MEDS ORDERED: LOPERAMIDE HCL 2 MG CAPSULE PO PRN (17:32)
[2017-05-23] MEDS ORDERED: ACETAMINOPHEN 325 MG TABLET (FP) PO PRN (17:32)
[2017-05-23] MEDS: chlordiazePOXIDE HCL 25 MG CAPSULE PO PRN (19:02)
[2017-05-23] MEDS: chlordiazePOXIDE HCL 25 MG CAPSULE PO SCH (22:10)
[2017-05-23] MEDS: THIAMINE HCL 100 MG TABLET (FP) PO SCH (22:10)
[2017-05-23] MEDS: diphenhydrAMINE HCL 50 MG CAPSULE PO PRN (22:10)
[2017-05-23 22:17] LABS: URINE APPEARANCE SLCLOUDY; URINE BILIRUBIN NEGATIVE (NEGATIVE); URINE BLOOD NEGATIVE (NEGATIVE); URINE COLOR YELLOW; URINE GLUCOSE (UA) NEGATIVE (NEGATIVE); URINE KETONE NEGATIVE (NEGATIVE); URINE NITRITE NEGATIVE (NEGATIVE); URINE PROTEIN NEGATIVE (NEGATIVE); URINE UROBILINOGEN NEGATIVE mg/dL (0.2-1.0)
[2017-05-23] MEDS: ALBUTEROL SO4 18 GM HFA INHALER IH PRN (22:18)
[2017-05-24] MEDS: diphenhydrAMINE HCL 50 MG CAPSULE PO PRN ×2 (00:37→22:07)
[2017-05-24] MEDS: ALBUTEROL SO4 18 GM HFA INHALER IH PRN ×5 (02:29→22:07)
[2017-05-24] MEDS: chlordiazePOXIDE HCL 25 MG CAPSULE PO SCH ×4 (05:55→22:07)
[2017-05-24] MEDS ORDERED: METHADONE HCL 10 MG TABLET PO SCH (09:30)
[2017-05-24 09:36] LABS: MCH 29.4 pg (25.7-33.7); MCHC 33.5 g/dl (32.0-35.9); MEAN CELL VOLUME 87.8 fl (80-96); MEAN PLT VOLUME 8.8 fl (7.5-11.1); PLATELET COUNT 302 K/MM3 (134-434); RDW 12.9 % (11.9-15.9); WHITE BLOOD COUNT 5.7 K/mm3 (4.0-10.0)
[2017-05-24 09:55] LABS: ALBUMIN 3.3 g/dl (3.4-5.0); ALK PHOS 68 U/L (45-117); ANION GAP 9 (8-16); BILIRUBIN,TOTAL 0.2 mg/dL (0.2-1.0); CALCIUM 8.6 mg/dL (8.5-10.1); CO2 27 mmol/L (21-32); CREATININE 0.7 mg/dL (0.7-1.3); GLUCOSE,RANDOM 89 mg/dL (74-106); SGOT/AST 17 U/L (15-37); SGPT/ALT 36 U/L (12-78); TOT PROT 6.6 g/dl (6.4-8.2)
[2017-05-24] MEDS: NICOTINE 14 MG/24 HOURS TOPICAL PATCH TD SCH (10:32)
[2017-05-24] MEDS: PRENATAL VITAMINS W/ FOLIC ACID TABLET (FP) PO SCH (10:32)
[2017-05-24] MEDS: METHADONE 40 MG, METHADONE 5 MG PO SCH (10:51)
[2017-05-24] MEDS ORDERED: METHADONE HCL 5 MG TABLET ONE (10:51)
[2017-05-24] MEDS ORDERED: METHADONE HCL 40 MG DISPERSABLE TABLET ONE (10:51)
[2017-05-24 11:22] LABS: URINE LEUK ESTERASE Negative (NEGATIVE)
--- NOTE | 2017-05-24 12:04 | EKG ---
Test Reason : Blood Pressure : / mmHG Vent. Rate : 068 BPM Atrial Rate : 068 BPM P-R Int : 156 ms QRS Dur : 106 ms QT Int : 396 ms P-R-T Axes : 052 043 050 degrees QTc Int : 421 ms NORMAL SINUS RHYTHM POSSIBLE LEFT ATRIAL ENLARGEMENT INCOMPLETE RIGHT BUNDLE BRANCH BLOCK BORDERLINE ECG WHEN COMPARED WITH ECG OF 25-NOV-2016 15:55, NO SIGNIFICANT CHANGE WAS FOUND Confirmed by YARITZA GIBSON MD ([id number]) on 05/24/2017 12:04:31 PM Referred By: Confirmed By:YARITZA GIBSON MD
--- NOTE | 2017-05-24 12:17 | PN ---
S CIWA - CIWA Score Nausea/Vomitin-No Nausea/No Vomiting Muscle Tremors: 4-Moderate,w/Arms Extend Anxiety: 3 Agitation: 2 Paroxysmal Sweats: 3 Orientation: 0-Oriented Tacttile Disturbances: 2-Mild Itch/Numbness/Burn Auditory Disturbances: 0-None Visual Disturbances: 0-None Headache: 3-Moderate CIWA-Ar Total Score: 17 [facility] Progress Note (SOAP) Subjective: Sweating, Diarrhea, H/A, Body Aches, Tremors. Objective: PT. A & O X 3. NO ACUTE DISTRESS. 05/24/17 12:16 Vital Signs Temperature 97.1 F L 05/24/17 09:47 Pulse Rate 64 05/24/17 09:47 Respiratory Rate 18 05/24/17 09:47 Blood Pressure 107/71 05/24/17 09:47 O2 Sat by Pulse Oximetry (%) Laboratory Tests 05/23/17 05/24/17 05/24/17 21:30 07:00 07:00 WBC 5.7 RBC 4.29 Hgb 12.6 Hct 37.7 MCV 87.8 MCH 29.4 MCHC 33.5 RDW 12.9 Plt Count 302 D MPV 8.8 Sodium 140 Potassium 4.1 Chloride 104 Carbon Dioxide 27 Anion Gap 9 BUN 13 D Creatinine 0.7 Creat Clearance w eGFR > 60 Random Glucose 89 Calcium 8.6 Total Bilirubin 0.2 D AST 17 ALT 36 Alkaline Phosphatase 68 D Total Protein 6.6 Albumin 3.3 L Urine Color Yellow Urine Appearance Slcloudy Urine pH 5.0 Ur Specific [place] >= 1.030 H Urine Protein Negative Urine Glucose (UA) Negative Urine Ketones Negative Urine Blood Negative Urine Nitrite Negative Urine Bilirubin Negative Urine Urobilinogen Negative Ur Leukocyte Esterase Negative RPR Titer 05/24/17 07:00 WBC RBC Hgb Hct MCV MCH MCHC RDW Plt Count MPV Sodium Potassium Chloride Carbon Dioxide Anion Gap BUN Creatinine Creat Clearance w eGFR Random Glucose Calcium Total Bilirubin AST ALT Alkaline Phosphatase Total Protein Albumin Urine Color Urine Appearance Urine pH Ur Specific [place] Urine Protein Urine Glucose (UA) Urine Ketones Urine Blood Urine Nitrite Urine Bilirubin Urine Urobilinogen Ur Leukocyte Esterase RPR Titer Nonreactive LABS NOTED. Assessment: 05/24/17 12:16 WITHDRAWAL SYMPTOMS. Plan: CONTINUE DETOX. PRN IMMODIUM FOR DIARRHEA. INCREASE DAILY PO FLUID INTAKE.
[2017-05-24] MEDS: CYCLOBENZAPRINE HCL 10 MG TABLET (FP) PO PRN (12:40)
[2017-05-24] MEDS: chlordiazePOXIDE HCL 25 MG CAPSULE PO PRN ×2 (12:41→19:50)
--- NOTE | 2017-05-24 13:32 | CONSULT ---
[facility] Psychiatric Consult - Data Date of interview: 05/24/17 Admission source: [facility] Identifying data: Readmission to [facility] for this 27 y/o male seeking detox treatment on 3 for alcohol,cannabis,heroin,cocaine and xanax dependence.Patient is ,a father of one,domiciled,unemployed and supported on welfare. Substance Abuse History: Confirmed by patient in this interview. Smoking Cessation. Smoking history: Current every day smoker. Have you smoked in the past 12 months: Yes. Aproximately how many cigarettes per day: 4. Cigars Per Day: 0. Hx Chewing Tobacco Use: No. Initiated information on smoking cessation : Yes. 'Breaking Loose' booklet given: 05/23/17. - Substance & Tx. History. Hx Alcohol Use: Yes. Hx Substance Use: Yes. Substance Use Type: Alcohol, Cocaine, Marijuana, Opiates. Hx Substance Use [facility]: [facility]29[facility] - Substances Abused. Heroin. Route: Inhalation. Frequency: Daily. Amount used: 8-10 bags. Age of first use: 23. Date of Last Use: . Cocaine. Route: Inhalation. Frequency: Daily. Amount used: $100-150. Age of first use: 23. Date of Last Use: 05/20/17. Alprazolam (Xanax). Route: Oral. Frequency: Daily. Amount used: 6-8mg. Age of first use: 26. Date of Last Use: 05/22/17. Alcohol. Route: Oral. Frequency: Daily. Amount used: rum(1 pint)/cognac(1/2 pint). Age of first use: 17. Date of Last Use: 05/22/17. Marijuana/Hashish. Route: Smoking. Frequency: 1-2 times per week. Amount used: $10. Age of first use: 11. Date of Last Use: 05/22/17 Medical History: Bronchial asthma and a past history of gastritis. Psychiatric History: Patient denies history of mental illness.Gets prescribed trazodone 100 mg/hs by his primary care doctor (insomnia).Mr Worley denies prior contact with psychiatric OPD care providers.No history of suicide attempts.Currrently on methadone maintenance (45 mg/day). Physical/Sexual Abuse/Trauma History: Patient denies. Additional Comment: Urine Drug Screen Results: THC-Marijuana, ANTHONY-Cocaine, OPI- Opiates, MTD-Methadone.Noted. Mental Status Exam - Mental Status Exam Alert and Oriented to: Time, Place, Person Cognitive Function: Good Patient Appearance: Well Groomed Mood: Hopeful, Euthymic Affect: Appropriate, Normal Range Patient Behavior: Cooperative Speech Pattern: Clear, Appropriate Voice Loudness: Normal Thought Process: Intact, Goal Oriented Thought Disorder: Not Present Hallucinations: Denies Suicidal Ideation: Denies Homicidal Ideation: Denies Insight/Judgement: Poor Sleep: Poorly, Difficulty falling asleep Appetite: Good Muscle strength/Tone: Normal Gait/Station: Normal Psychiatric Findings - Problem List ([place] 1, 2,3) (1) Alcohol dependence with uncomplicated withdrawal Current Visit: Yes Status: Acute (2) Nicotine dependence Current Visit: Yes Status: Acute Qualifiers: Nicotine product type: cigarettes Substance use status: in withdrawal Qualified Code(s): F17.213 - Nicotine dependence, cigarettes, with withdrawal; F17.213 - Nicotine dependence, cigarettes, with withdrawal (3) Cocaine dependence, uncomplicated Current Visit: Yes Status: Acute (4) Sedative, hypnotic or anxiolytic dependence, uncomplicated Current Visit: Yes Status: Acute (5) Opioid dependence on agonist therapy Current Visit: Yes Status: Acute (6) Asthma Current Visit: Yes Status: Chronic Qualifiers: Asthma severity: mild Asthma complication type: uncomplicated (7) Insomnia Current Visit: Yes Status: Acute - Initial Treatment Plan Initial Treatment Plan: Psychoeducation.Detoxification.Trazodone 100 mg po hs.Patient is made aware of potential for priapism and he is instructed to alert staff if occurrrence of erectile abnormalities (painful/prolonged erection ).Mr Worley insists on taking trazodone at bedtime.Observation.
[2017-05-24] MEDS: IBUPROFEN 400 MG TABLET (FP) PO PRN (17:40)
[2017-05-24] MEDS: THIAMINE HCL 100 MG TABLET (FP) PO SCH (22:06)
[2017-05-24] MEDS: traZODone HCL 100 MG TABLET (FP) PO SCH (22:07)
[2017-05-25] MEDS ORDERED: METHADONE HCL 5 MG TABLET ONE (03:06)
[2017-05-25] MEDS ORDERED: METHADONE HCL 40 MG DISPERSABLE TABLET ONE (03:07)
[2017-05-25] MEDS: ALBUTEROL SO4 18 GM HFA INHALER IH PRN ×5 (03:56→22:08)
[2017-05-25] MEDS: METHADONE 40 MG, METHADONE 5 MG PO SCH (05:46)
[2017-05-25] MEDS: chlordiazePOXIDE HCL 25 MG CAPSULE PO SCH ×3 (05:46→16:55)
[2017-05-25] MEDS: CYCLOBENZAPRINE HCL 10 MG TABLET (FP) PO PRN ×2 (05:46→16:55)
[2017-05-25] MEDS: NICOTINE 14 MG/24 HOURS TOPICAL PATCH TD SCH (10:27)
[2017-05-25] MEDS: PRENATAL VITAMINS W/ FOLIC ACID TABLET (FP) PO SCH (10:27)
--- NOTE | 2017-05-25 11:29 | PN ---
[facility] CIWA - CIWA Score Nausea/Vomitin-No Nausea/No Vomiting Muscle Tremors: 4-Moderate,w/Arms Extend Anxiety: 4-Mod. Anxious/Guarded Agitation: 4-Moderately Restless Paroxysmal Sweats: 1-Minimal Palms Moist Orientation: 0-Oriented Tacttile Disturbances: 3-Moderate Itch/Numb/Burn Auditory Disturbances: 0-None Visual Disturbances: 0-None Headache: 0-None Present CIWA-Ar Total Score: 16 S Progress Note (SOAP) Subjective: ANXIETY,SWEATS,HEADACHE,NAUSEA,FATIGUE. Objective: 05/25/17 11:31 Vital Signs Temperature 96.9 F L 05/25/17 10:13 Pulse Rate 71 05/25/17 10:13 Respiratory Rate 18 05/25/17 10:13 Blood Pressure 122/63 05/25/17 10:13 O2 Sat by Pulse Oximetry (%) Laboratory Last Values WBC 5.7 K/mm3 (4.0-10.0) 05/24/17 07:00 RBC 4.29 M/mm3 (4.00-5.60) 05/24/17 07:00 Hgb 12.6 GM/dL (11.7-16.9) 05/24/17 07:00 Hct 37.7 % (35.4-49) 05/24/17 07:00 MCV 87.8 fl (80-96) 05/24/17 07:00 MCH 29.4 pg (25.7-33.7) 05/24/17 07:00 MCHC 33.5 g/dl (32.0-35.9) 05/24/17 07:00 RDW 12.9 % (11.9-15.9) 05/24/17 07:00 Plt Count 302 K/MM3 (134-434) D 05/24/17 07:00 MPV 8.8 fl (7.5-11.1) 05/24/17 07:00 Sodium 140 mmol/L (136-145) 05/24/17 07:00 Potassium 4.1 mmol/L (3.5-5.1) 05/24/17 07:00 Chloride 104 mmol/L (98-107) 05/24/17 07:00 Carbon Dioxide 27 mmol/L (21-32) 05/24/17 07:00 Anion Gap 9 (8-16) 05/24/17 07:00 BUN 13 mg/dL (7-18) D 05/24/17 07:00 Creatinine 0.7 mg/dL (0.7-1.3) 05/24/17 07:00 Creat Clearance w eGFR > 60 (>60) 05/24/17 07:00 Random Glucose 89 mg/dL (74-106) 05/24/17 07:00 Calcium 8.6 mg/dL (8.5-10.1) 05/24/17 07:00 Total Bilirubin 0.2 mg/dL (0.2-1.0) D 05/24/17 07:00 AST 17 U/L (15-37) 05/24/17 07:00 ALT 36 U/L (12-78) 05/24/17 07:00 Alkaline Phosphatase 68 U/L (45-117) D 05/24/17 07:00 Total Protein 6.6 g/dl (6.4-8.2) 05/24/17 07:00 Albumin 3.3 g/dl (3.4-5.0) L 05/24/17 07:00 Urine Color Yellow 05/23/17 21:30 Urine Appearance Slcloudy 05/23/17 21:30 Urine pH 5.0 (5.0-8.0) 05/23/17 21:30 Ur Specific [place] >= 1.030 (1.005-1.025) H 05/23/17 21:30 Urine Protein Negative (NEGATIVE) 05/23/17 21:30 Urine Glucose (UA) Negative (NEGATIVE) 05/23/17 21:30 Urine Ketones Negative (NEGATIVE) 05/23/17 21:30 Urine Blood Negative (NEGATIVE) 05/23/17 21:30 Urine Nitrite Negative (NEGATIVE) 05/23/17 21:30 Urine Bilirubin Negative (NEGATIVE) 05/23/17 21:30 Urine Urobilinogen Negative mg/dL (0.2-1.0) 05/23/17 21:30 Ur Leukocyte Esterase Negative (NEGATIVE) 05/23/17 21:30 RPR Titer Nonreactive (NONREACTIVE) 05/24/17 07:00 Assessment: 05/25/17 11:31 WITHDRAWAL SX Plan: CONTINUE DETOX
[2017-05-25] MEDS: chlordiazePOXIDE HCL 25 MG CAPSULE PO PRN ×2 (14:48→18:51)
[2017-05-25] MEDS: IBUPROFEN 400 MG TABLET (FP) PO PRN (18:51)
[2017-05-25] MEDS: traZODone HCL 100 MG TABLET (FP) PO SCH (22:05)
[2017-05-25] MEDS: THIAMINE HCL 100 MG TABLET (FP) PO SCH (22:05)
[2017-05-25] MEDS: chlordiazePOXIDE 5 MG CAPSULE PO SCH (22:06)
[2017-05-26] MEDS: CYCLOBENZAPRINE HCL 10 MG TABLET (FP) PO PRN ×3 (02:11→19:02)
[2017-05-26] MEDS: ALBUTEROL SO4 18 GM HFA INHALER IH PRN ×4 (02:12→22:21)
[2017-05-26] MEDS ORDERED: METHADONE HCL 40 MG DISPERSABLE TABLET ONE (03:24)
[2017-05-26] MEDS ORDERED: METHADONE HCL 5 MG TABLET ONE (03:24)
[2017-05-26] MEDS: chlordiazePOXIDE 5 MG CAPSULE PO SCH ×3 (05:28→17:15)
[2017-05-26] MEDS: METHADONE 40 MG, METHADONE 5 MG PO SCH (05:29)
[2017-05-26] MEDS: PRENATAL VITAMINS W/ FOLIC ACID TABLET (FP) PO SCH (10:25)
[2017-05-26] MEDS: NICOTINE 14 MG/24 HOURS TOPICAL PATCH TD SCH (10:27)
[2017-05-26] MEDS: IBUPROFEN 400 MG TABLET (FP) PO PRN (10:28)
[2017-05-26] MEDS ORDERED: LIDOCAINE 5% TOPICAL PATCH TP SCH (13:00)
--- NOTE | 2017-05-26 16:53 | PN ---
[facility] Progress Note (SOAP) Subjective: Sweating, Body Aches, Diarrhea, Stomach Cramping, Vomiting, H/A, Interrupted Sleep. Objective: PT. A & O X 2 (DISORIENTED ABOUT DAY /DATE). PT. OBSERVED AMBULATING ON UNIT. NO ACUTE DISTRESS. 05/26/17 16:52 Vital Signs Temperature 96.3 F L 05/26/17 13:55 Pulse Rate 71 05/26/17 13:55 Respiratory Rate 16 05/26/17 13:55 Blood Pressure 108/50 05/26/17 13:55 O2 Sat by Pulse Oximetry (%) Laboratory Tests 05/23/17 05/24/17 05/24/17 21:30 07:00 07:00 WBC 5.7 RBC 4.29 Hgb 12.6 Hct 37.7 MCV 87.8 MCH 29.4 MCHC 33.5 RDW 12.9 Plt Count 302 D MPV 8.8 Sodium 140 Potassium 4.1 Chloride 104 Carbon Dioxide 27 Anion Gap 9 BUN 13 D Creatinine 0.7 Creat Clearance w eGFR > 60 Random Glucose 89 Calcium 8.6 Total Bilirubin 0.2 D AST 17 ALT 36 Alkaline Phosphatase 68 D Total Protein 6.6 Albumin 3.3 L Urine Color Yellow Urine Appearance Slcloudy Urine pH 5.0 Ur Specific [place] >= 1.030 H Urine Protein Negative Urine Glucose (UA) Negative Urine Ketones Negative Urine Blood Negative Urine Nitrite Negative Urine Bilirubin Negative Urine Urobilinogen Negative Ur Leukocyte Esterase Negative RPR Titer 05/24/17 07:00 WBC RBC Hgb Hct MCV MCH MCHC RDW Plt Count MPV Sodium Potassium Chloride Carbon Dioxide Anion Gap BUN Creatinine Creat Clearance w eGFR Random Glucose Calcium Total Bilirubin AST ALT Alkaline Phosphatase Total Protein Albumin Urine Color Urine Appearance Urine pH Ur Specific [place] Urine Protein Urine Glucose (UA) Urine Ketones Urine Blood Urine Nitrite Urine Bilirubin Urine Urobilinogen Ur Leukocyte Esterase RPR Titer Nonreactive LABS NOTED. Assessment: 05/26/17 16:52 WITHDRAWAL SYMPTOMS. Plan: CONTINUE DETOX. INCREASE DAILY PO FLUID INTAKE.
[2017-05-26] MEDS ORDERED: LIDOCAINE PATCH REMOVAL MC SCH (22:00)
[2017-05-26] MEDS: chlordiazePOXIDE HCL 10 MG CAPSULE PO SCH (22:19)
[2017-05-26] MEDS: THIAMINE HCL 100 MG TABLET (FP) PO SCH (22:20)
[2017-05-26] MEDS: traZODone HCL 100 MG TABLET (FP) PO SCH (22:20)
[2017-05-26] MEDS: diphenhydrAMINE HCL 50 MG CAPSULE PO PRN (22:20)
[2017-05-27] MEDS: diphenhydrAMINE HCL 50 MG CAPSULE PO PRN (01:20)
[2017-05-27] MEDS ORDERED: METHADONE HCL 5 MG TABLET ONE (04:11)
[2017-05-27] MEDS ORDERED: METHADONE HCL 40 MG DISPERSABLE TABLET ONE (04:11)
[2017-05-27] MEDS: ALBUTEROL SO4 18 GM HFA INHALER IH PRN (05:03)
[2017-05-27] MEDS: CYCLOBENZAPRINE HCL 10 MG TABLET (FP) PO PRN (05:28)
[2017-05-27] MEDS: chlordiazePOXIDE HCL 10 MG CAPSULE PO SCH (05:28)
[2017-05-27] MEDS: METHADONE 40 MG, METHADONE 5 MG PO SCH (05:29)
[2017-05-27 06:20] VITALS: BP 126/63; PULSE 71; TEMP 97
[2017-05-27] MEDS: PRENATAL VITAMINS W/ FOLIC ACID TABLET (FP) PO SCH (09:36)
[2017-05-27] MEDS: IBUPROFEN 400 MG TABLET (FP) PO PRN (09:38)
--- NOTE | 2017-05-27 14:38 | DS ---
[facility] Detox Discharge Summary Admission Date: 05/23/17 Discharge Date: 05/27/17 - History Present History: Alcohol Dependence, Cannabis Dependence, Opioid Dependence, MMTP Additional Comments: DETOX COMPLETED.ALERT O X 3. NAD. PT INSTRUCTED TO FOLLOW UP WITH PCP AT [facility] NEEDED. Pertinent Past History: ASTHMA - Physical Exam Results Vital Signs: Vital Signs Temperature 97 F L 05/27/17 06:20 Pulse Rate 71 05/27/17 06:20 Respiratory Rate 16 05/27/17 06:20 Blood Pressure 126/63 05/27/17 06:20 O2 Sat by Pulse Oximetry (%) Pertinent Admission Physical Exam Findings: WITHDRAWAL SX Laboratory Last Values WBC 5.7 K/mm3 (4.0-10.0) 05/24/17 07:00 RBC 4.29 M/mm3 (4.00-5.60) 05/24/17 07:00 Hgb 12.6 GM/dL (11.7-16.9) 05/24/17 07:00 Hct 37.7 % (35.4-49) 05/24/17 07:00 MCV 87.8 fl (80-96) 05/24/17 07:00 MCH 29.4 pg (25.7-33.7) 05/24/17 07:00 MCHC 33.5 g/dl (32.0-35.9) 05/24/17 07:00 RDW 12.9 % (11.9-15.9) 05/24/17 07:00 Plt Count 302 K/MM3 (134-434) D 05/24/17 07:00 MPV 8.8 fl (7.5-11.1) 05/24/17 07:00 Sodium 140 mmol/L (136-145) 05/24/17 07:00 Potassium 4.1 mmol/L (3.5-5.1) 05/24/17 07:00 Chloride 104 mmol/L (98-107) 05/24/17 07:00 Carbon Dioxide 27 mmol/L (21-32) 05/24/17 07:00 Anion Gap 9 (8-16) 05/24/17 07:00 BUN 13 mg/dL (7-18) D 05/24/17 07:00 Creatinine 0.7 mg/dL (0.7-1.3) 05/24/17 07:00 Creat Clearance w eGFR > 60 (>60) 05/24/17 07:00 Random Glucose 89 mg/dL (74-106) 05/24/17 07:00 Calcium 8.6 mg/dL (8.5-10.1) 05/24/17 07:00 Total Bilirubin 0.2 mg/dL (0.2-1.0) D 05/24/17 07:00 AST 17 U/L (15-37) 05/24/17 07:00 ALT 36 U/L (12-78) 05/24/17 07:00 Alkaline Phosphatase 68 U/L (45-117) D 05/24/17 07:00 Total Protein 6.6 g/dl (6.4-8.2) 05/24/17 07:00 Albumin 3.3 g/dl (3.4-5.0) L 05/24/17 07:00 Urine Color Yellow 05/23/17 21:30 Urine Appearance Slcloudy 05/23/17 21:30 Urine pH 5.0 (5.0-8.0) 05/23/17 21:30 Ur Specific [place] >= 1.030 (1.005-1.025) H 05/23/17 21:30 Urine Protein Negative (NEGATIVE) 05/23/17 21:30 Urine Glucose (UA) Negative (NEGATIVE) 05/23/17 21:30 Urine Ketones Negative (NEGATIVE) 05/23/17 21:30 Urine Blood Negative (NEGATIVE) 05/23/17 21:30 Urine Nitrite Negative (NEGATIVE) 05/23/17 21:30 Urine Bilirubin Negative (NEGATIVE) 05/23/17 21:30 Urine Urobilinogen Negative mg/dL (0.2-1.0) 05/23/17 21:30 Ur Leukocyte Esterase Negative (NEGATIVE) 05/23/17 21:30 RPR Titer Nonreactive (NONREACTIVE) 05/24/17 07:00 - Treatment Hospital Course: Detox Protocol Followed, Detoxed Safely, Responded well, Discharged Condition Good, Rehab Referral Accepted Patient has Accepted a Rehab Referral to: [facility] - Medication Discharge Medications: Ambulatory Orders Albuterol Sulfate Inhaler - [Ventolin HFA Inhaler -] 2 inh IH Q4H PRN #1 inh Trazodone HCl 100 mg PO HS 10/11/17 Trazodone HCl 100 mg PO HS #30 tablet 05/24/17 - Diagnosis (1) Alcohol dependence with uncomplicated withdrawal Status: Acute (2) Cocaine dependence, uncomplicated Status: Acute (3) Nicotine dependence Status: Acute Qualifiers: Nicotine product type: cigarettes Substance use status: in withdrawal Qualified Code(s): F17.213 - Nicotine dependence, cigarettes, with withdrawal; F17.213 - Nicotine dependence, cigarettes, with withdrawal (4) Asthma Status: Chronic Qualifiers: Asthma severity: mild Asthma complication type: uncomplicated (5) Cannabis dependence, uncomplicated Status: Acute (6) Methadone maintenance therapy patient Status: Chronic - AMA Did Patient Leave Against Medical Advice: No
== END 2017-05-27 09:40 | disposition home or self-care (01) | DRG 773 ==
LOC: YASAS 10:57 → Y3N 15:52
PROVIDERS: ADMIT Internal Medicine; ATTEND Internal Medicine
PROC: HZ2ZZZZ Detoxification Services for Substance Abuse Treatment (ICD-10-PCS; principal; 2017-05-23)
DX: F10.230 Alcohol dependence with withdrawal, uncomplicated (principal); F11.20 Opioid dependence, uncomplicated; F14.20 Cocaine dependence, uncomplicated; F12.20 Cannabis dependence, uncomplicated; F17.213 Nicotine dependence, cigarettes, with withdrawal; Z91.013 Allergy to seafood; Z91.018 Allergy to other foods
CPT/HCPCS: 36415; 80053; 81003; 85027; 86593; 93005; 93010

== ENCOUNTER 2017-07-19 12:39 | Inpatient (IN) | payer OTHER ==
[2017-07-19 16:14] VITALS: BMI 30.9
--- NOTE | 2017-07-19 17:45 | HP ---
COWS - Scale Resting Pulse: 0= [place] 80 or Below Sweatin=Flushed/Facial Moisture Restless Observation: 1= Difficult to Sit Still Pupil Size: 1= Pupils >than Normal Bone or Joint Aches: 2= Severe Diffuse Aches Runny Nose/ Eye Tearin= Runny Nose/Eyes GI Upset > 30mins: 3= Vomiting/Diarrhea (vomitted x 1) Tremor Observation: 2= Slight Tremor Visible Yawning Observation: 0= None Anxiety or Irritability: 4=Extreme Anxiety Goose Flesh Skin: 0=Smooth Skin COWS Score: 17 CIWA Score - CIWA Score Nausea/Vomitin (vomitted x 1) Muscle Tremors: 4-Moderate,w/Arms Extend Anxiety: 4-Mod. Anxious/Guarded Agitation: 4-Moderately Restless Paroxysmal Sweats: No Perspiration Orientation: 0-Oriented Tacttile Disturbances: 0-None Auditory Disturbances: 0-None Visual Disturbances: 0-None Headache: 4-Moderately Severe CIWA-Ar Total Score: 18 Admission ROS S - HPI Chief Complaint: heroin and alcohol withdrawal symptoms Allergies/Adverse Reactions: Allergies Allergy/AdvReac Type Severity Reaction Status Date / Time Fish Containing Products Allergy Severe Difficulty Verified 07/19/17 16:32 [Fish Product Derivatives] Breathing shellfish derived Allergy Severe Difficulty Verified 07/19/17 16:32 [Shellfish Derived] Breathing No Known Drug Allergies Allergy Verified 07/19/17 16:32 mushroom Allergy Severe Swelling Uncoded 07/19/17 16:32 NKDA Allergy Uncoded 07/19/17 16:32 History of Present Illness: 27 years old male with a history of alcohol, heroine and cocaine dependence is admitted to detox. Patient has been in previous detox and reports 8 months of sobriety. He has medical history of asthma and denies suicidal ideation at this time. Patient is on MMTP with methadone 55mg at [facility]. Last day medicated was 07/18/2017. Exam Limitations: No Limitations - Ebola screening Have you traveled outside of the country in the last 21 days: No Have you had contact with anyone from an Ebola affected area: No Have you been sick,other than usual withdrawal symptoms: No Do you have a fever: No - Review of Systems Constitutional: Chills, Loss of Appetite, Malaise, Night Sweats, Changes in sleep, Weakness EENT: reports: No Symptoms Reported Respiratory: reports: Wheezing (mild) Cardiac: reports: No Symptoms Reported GI: reports: Poor Appetite, Poor Fluid Intake, Vomiting (x 1) : reports: No Symptoms Reported Musculoskeletal: reports: Back Pain, Muscle Pain, Muscle Weakness Integumentary: reports: No Symptoms Reported Neuro: reports: Headache, Tingling, Tremors Endocrine: reports: No Symptoms Reported Hematology: reports: No Symptoms Reported Psychiatric: reports: Mood/Affect Appropiate, Orientated x3, Agitated, Anxious Other Systems: Reviewed and Negative Patient History - Patient Medical History Hx Anemia: No Hx Asthma: Yes (Pt is on MDI) Hx Chronic Obstructive Pulmonary Disease (COPD): No Hx Cancer: No Hx Cardiac Disorders: No Hx Congestive Heart Failure: No Hx Hypertension: No Hx Hypercholesterolemia: No Hx Pacemaker: No HX Cerebrovascular Accident: No Hx Seizures: No Hx Dementia: No Hx Diabetes: No Hx Gastrointestinal Disorders: No Hx Liver Disease: No Hx Genitourinary Disorders: No Hx Sexually Transmitted Disorders: No Hx Renal Disease (ESRD): No Hx Thyroid Disease: No Hx Human Immunodeficiency Virus (HIV): No (Negative May 2017) Hx Hepatitis C: No (Negative may 2017) Hx Depression: No Hx Suicide Attempt: No Hx Bipolar Disorder: No Hx Schizophrenia: No - Patient Surgical History Past Surgical History: No Hx Neurologic Surgery: No Hx Cataract Extraction: No Hx Cardiac Surgery: No Hx Lung Surgery: No Hx Breast Surgery: No Hx Breast Biopsy: No Hx Abdominal Surgery: No Hx Appendectomy: No Hx Cholecystectomy: No Hx Genitourinary Surgery: No Hx Section: No Hx Orthopedic Surgery: No Anesthesia Reaction: No - PPD History Previous Implant?: Yes Documented Results: Negative w/proof Implanted On Prior [facility] Admission?: Yes Date: 11/27/16 Results: 0 mm PPD to be Administered?: No - Reproductive History Patient is a Female of Child Bearing Age (11 -55 yrs old): No (Male) - Smoking Cessation Smoking history: Current every day smoker Have you smoked in the past 12 months: Yes Aproximately how many cigarettes per day: 6 Cigars Per Day: 0 Hx Chewing Tobacco Use: No Initiated information on smoking cessation: Yes 'Breaking Loose' booklet given: 07/19/17 - Substance & Tx. History Hx Alcohol Use: Yes ([place]) Hx Substance Use: Yes Substance Use Type: Alcohol, Cocaine, Heroin, Marijuana Hx Substance Use Treatment: Yes ([facility]) - Substances Abused Alcohol Route: Oral Frequency: Daily Amount used: 1 pint cognac Age of first use: 16 Date of Last Use: 07/18/17 Cocaine Route: Injection Frequency: Daily Amount used: 2 grams Age of first use: 30 Date of Last Use: 07/18/17 Marijuana/Hashish Route: Smoking Frequency: Daily Amount used: 2 joints Age of first use: 10 Date of Last Use: 07/19/17 Heroin Route: Injection Frequency: Daily Amount used: 12 bags Age of first use: 23 Date of Last Use: 07/19/17 Family Disease History - Family Disease History Family Disease History: Diabetes: Grandparent (GMOTHER/), Mother (alive) , Heart Disease: Father (, [place], etoh), Mother, Other: Father, Mother, Brother (alive, no medical issues), Sister (alive, no medical) Admission Physical Exam [facility] - Vital Signs Vital Signs: Vital Signs - 24 hr 07/19/17 16:06 Temperature 98.1 F Pulse Rate 68 Respiratory 18 Rate Blood Pressure 121/79 - Physical General Appearance: Yes: Moderate Distress, Tremorous, Irritable, Sweating, Anxious HEENTM: Yes: EOMI, Normal Voice, DECLAN Respiratory: Yes: Lungs Clear, Normal Breath Sounds Neck: Yes: No masses,lesions,Nodules, Supple, Trachea in good position Breast: Yes: Breast Exam Deferred Cardiology: Yes: Regular Rhythm, Regular Rate, S1, S2 Abdominal: Yes: Normal Bowel Sounds, Non Tender, Soft Genitourinary: Yes: Within Normal Limits Back: Yes: Normal Inspection Musculoskeletal: Yes: Back pain, Muscle Pain, Muscle weakness Extremities: Yes: Tremors, Other (tatoos to both hands) Neurological: Yes: Normal Mood/Affect, Normal Response Integumentary: Yes: Dry, Track [place] (both hands) Lymphatic: Yes: Within Normal Limits - Diagnostic (1) Alcohol dependence with uncomplicated withdrawal Current Visit: Yes Status: Chronic (2) Cannabis dependence, uncomplicated Current Visit: Yes Status: Chronic (3) Cocaine dependence, uncomplicated Current Visit: Yes Status: Chronic (4) Opioid dependence on agonist therapy Current Visit: Yes Status: Chronic (5) Asthma Current Visit: Yes Status: Chronic Qualifiers: Asthma severity: mild Asthma complication type: uncomplicated (6) Methadone maintenance therapy patient Current Visit: Yes Status: Chronic Comment: [place] [phone] - [phone] -- open Sunday 7:30am-10:30am Cleared for Admission [facility] - Detox or Rehab [facility] Level of Care: Medically Managed Detox Regimen/Protocol: Librium [facility] Breath Alcohol Content Breath Alcohol Content: 0 Urine Drug Screen - Results Drug Screen Negative: No Urine Drug Screen Results: THC-Marijuana, ANTHONY-Cocaine, OPI-Opiates, MTD- Methadone
[2017-07-19] MEDS ORDERED: MAG HYDROX/AL HYDROX/SIMETH 30 ML UNIT-DOSE CUP PO PRN (17:59)
[2017-07-19] MEDS ORDERED: P-EPHED 60MG/TRIPROLIDI 2.5MG TABLET PO PRN (17:59)
[2017-07-19] MEDS ORDERED: LOPERAMIDE HCL 2 MG CAPSULE PO PRN (17:59)
[2017-07-19] MEDS ORDERED: MAGNESIUM HYDROX 2400MG/30ML ORAL SUSPENSION 30 ML CUP PO PRN (17:59)
[2017-07-19] MEDS ORDERED: NICOTINE POLACRILEX 2 MG GUM BC PRN (17:59)
[2017-07-19] MEDS ORDERED: MAGNESIUM CITRATE 300 ML BOTTLE PO PRN (17:59)
[2017-07-19] MEDS ORDERED: guaiFENesin/D-METHORPHAN HB 10 ML UNIT-DOSE CUPS PO PRN (17:59)
[2017-07-19] MEDS ORDERED: MENTHOL/PHENOL 1 EACH UD MM PRN (17:59)
[2017-07-19] MEDS ORDERED: METHADONE HCL 10 MG TABLET (FOR DETOX USE ONLY) PO ONE ×2 (18:45→23:00)
[2017-07-19] MEDS ORDERED: chlordiazePOXIDE HCL 25 MG CAPSULE PO PRN (19:25)
[2017-07-19] MEDS: chlordiazePOXIDE HCL 25 MG CAPSULE PO PRN (20:05)
[2017-07-19] MEDS: ALBUTEROL SO4 18 GM HFA INHALER IH PRN (22:23)
[2017-07-19] MEDS: THIAMINE HCL 100 MG TABLET (FP) PO SCH (22:24)
[2017-07-19] MEDS: chlordiazePOXIDE HCL 25 MG CAPSULE PO SCH (22:24)
[2017-07-19] MEDS ORDERED: chlordiazePOXIDE HCL 25 MG CAPSULE PO SCH (23:00)
[2017-07-20 00:24] LABS: URINE APPEARANCE CLEAR; URINE BILIRUBIN NEGATIVE (NEGATIVE); URINE BLOOD NEGATIVE (NEGATIVE); URINE COLOR YELLOW; URINE GLUCOSE (UA) NEGATIVE (NEGATIVE); URINE KETONE NEGATIVE (NEGATIVE); URINE LEUK ESTERASE NEGATIVE (NEGATIVE); URINE NITRITE NEGATIVE (NEGATIVE); URINE PROTEIN NEGATIVE (NEGATIVE); URINE UROBILINOGEN NEGATIVE mg/dL (0.2-1.0)
[2017-07-20] MEDS: chlordiazePOXIDE HCL 25 MG CAPSULE PO SCH ×4 (05:43→22:23)
[2017-07-20] MEDS ORDERED: METHADONE HCL 10 MG TABLET PO SCH (07:45)
[2017-07-20] MEDS ORDERED: METHADONE HCL 10 MG TABLET ONE (08:26)
[2017-07-20] MEDS ORDERED: METHADONE HCL 5 MG TABLET ONE (08:27)
[2017-07-20] MEDS ORDERED: METHADONE HCL 40 MG DISPERSABLE TABLET ONE (08:27)
[2017-07-20] MEDS: ALBUTEROL SO4 18 GM HFA INHALER IH PRN ×4 (08:47→22:25)
[2017-07-20] MEDS: METHADONE 40 MG, METHADONE 10 MG, METHADONE 5 MG PO SCH (08:49)
--- NOTE | 2017-07-20 09:18 | CONSULT ---
[facility] Psychiatric Consult - Data Date of interview: 07/20/17 Admission source: Self-referred Identifying data: Mr Worley is a 27 years old male, unemployed on public assistance, homeless Substance Abuse History: Reports history of alcohol, heroin, cocaine and marijuana use. Refer to addiction counselor's note for further information Medical History: Significant for bronchial asthma. Patient is on methadone 55 mg /day. Smokes 6 cigarettes daily Psychiatric History: Denies history of previous psychiatric treatment. [place], reports being prescribed Trazadone 150 mg po HS by his primary care physician for insomnia Physical/Sexual Abuse/Trauma History: Denies history of verbal, physical or sexual abuse. Additional Comment: Denies criminal history Mental Status Exam - Mental Status Exam Alert and Oriented to: Time, Place, Person Cognitive Function: Fair Patient Appearance: Well Groomed Mood: Depressed (mildly) Affect: Normal Range Patient Behavior: Cooperative Speech Pattern: Clear Voice Loudness: Normal Thought Process: Intact, Goal Oriented Thought Disorder: Not Present Hallucinations: Denies Suicidal Ideation: Denies Homicidal Ideation: Denies Insight/Judgement: Poor Sleep: Poorly Appetite: Good Muscle strength/Tone: Normal Gait/Station: Normal Psychiatric Findings - Problem List ([place] 1, 2,3) (1) Substance induced mood disorder Current Visit: Yes Status: Acute (2) Substance-induced sleep disorder Current Visit: Yes Status: Acute (3) Alcohol dependence with uncomplicated withdrawal Current Visit: Yes Status: Acute (4) Cocaine dependence, uncomplicated Current Visit: Yes Status: Chronic (5) Cannabis dependence, uncomplicated Current Visit: Yes Status: Acute (6) Opioid dependence on agonist therapy Current Visit: Yes Status: Chronic (7) Asthma Current Visit: Yes Status: Chronic Qualifiers: Asthma severity: mild Asthma complication type: uncomplicated - Initial Treatment Plan Initial Treatment Plan: 1) Continue Trazadone 150 mg po HS for insomnia. 2) Continue inpatient detoxification
[2017-07-20] MEDS ORDERED: METHADONE HCL 10 MG TABLET (FOR DETOX USE ONLY) PO SCH (10:00)
[2017-07-20] MEDS: NICOTINE 14 MG/24 HOURS TOPICAL PATCH TD SCH (10:24)
[2017-07-20] MEDS: PRENATAL VITAMINS W/ FOLIC ACID TABLET (FP) PO SCH (10:24)
--- NOTE | 2017-07-20 10:49 | EKG ---
Test Reason : Blood Pressure : / mmHG Vent. Rate : 066 BPM Atrial Rate : 066 BPM P-R Int : 150 ms QRS Dur : 108 ms QT Int : 394 ms P-R-T Axes : 058 050 039 degrees QTc Int : 413 ms NORMAL SINUS RHYTHM WITH SINUS ARRHYTHMIA NORMAL ECG WHEN COMPARED WITH ECG OF 23-MAY-2017 19:08, NO SIGNIFICANT CHANGE WAS FOUND Confirmed by MD KELSEY, SEBLE ([id number]) on 07/20/2017 10:49:45 AM Referred By: Confirmed By:SEBLE COLE MD
[2017-07-20 11:05] LABS: ALBUMIN 3.6 g/dl (3.4-5.0); ANION GAP 5 (8-16); BILIRUBIN,TOTAL 0.6 mg/dL (0.2-1.0); CALCIUM 8.6 mg/dL (8.5-10.1); CO2 30 mmol/L (21-32); CREATININE 0.7 mg/dL (0.7-1.3); GLUCOSE,RANDOM 96 mg/dL (74-106); SGOT/AST 10 U/L (15-37); SGPT/ALT 32 U/L (12-78); TOT PROT 7.1 g/dl (6.4-8.2)
[2017-07-20 11:06] LABS: ALK PHOS 58 U/L (45-117)
[2017-07-20 11:09] LABS: MCH 29.2 pg (25.7-33.7); MCHC 33.4 g/dl (32.0-35.9); MEAN CELL VOLUME 87.6 fl (80-96); MEAN PLT VOLUME 8.9 fl (7.5-11.1); PLATELET COUNT 272 K/MM3 (134-434); RDW 13.4 % (11.9-15.9); WHITE BLOOD COUNT 6.4 K/mm3 (4.0-10.0)
[2017-07-20] MEDS: chlordiazePOXIDE HCL 25 MG CAPSULE PO PRN (12:37)
[2017-07-20] MEDS: CYCLOBENZAPRINE HCL 5 MG TABLET PO PRN ×2 (12:37→20:30)
[2017-07-20 14:07] LABS: URINE LEUK ESTERASE Negative (NEGATIVE)
--- NOTE | 2017-07-20 14:53 | PN ---
[facility] CIWA - CIWA Score Nausea/Vomitin-No Nausea/No Vomiting Muscle Tremors: 3 Anxiety: 4-Mod. Anxious/Guarded Agitation: 3 Paroxysmal Sweats: 4-Forehead w/Sweat Beads Orientation: 0-Oriented Tacttile Disturbances: 2-Mild Itch/Numbness/Burn Auditory Disturbances: 0-None Visual Disturbances: 2-Mild Sensitivity Headache: 0-None Present CIWA-Ar Total Score: 18 S COWS - Scale Resting Pulse: 0= [place] 80 or Below Sweatin= Chills/Flushing Restless Observation: 1= Difficult to Sit Still Pupil Size: 0= Normal to Room Light Bone or Joint Aches: 2= Severe Diffuse Aches Runny Nose/ Eye Tearin= None GI Upset > 30mins: 2= Nausea/Diarrhea Tremor Observation of Outstretched Hands: 2= Slight Tremor Visible Yawning Observation: 1= 1-2x During Session Anxiety or Irritability: 2=Irritable/Anxious Goose Flesh Skin: 3=Piloerection COWS Score: 14 S Progress Note (SOAP) Subjective: Tremors, Anxious, Sweating, Interrupted Sleep, Stomach Cramping, Body Aches. Objective: PT. A & O X 3, OBSERVED AMBULATING ON UNIT. NO ACUTE DISTRESS. 07/20/17 14:52 Vital Signs Temperature 98.0 F 07/20/17 13:10 Pulse Rate 72 07/20/17 13:10 Respiratory Rate 18 07/20/17 13:10 Blood Pressure 108/66 07/20/17 13:10 O2 Sat by Pulse Oximetry (%) Laboratory Tests 07/19/17 07/20/17 07/20/17 21:00 07:00 07:00 WBC 6.4 RBC 4.62 Hgb 13.5 Hct 40.4 MCV 87.6 MCH 29.2 MCHC 33.4 RDW 13.4 Plt Count 272 MPV 8.9 Sodium 138 Potassium 4.2 Chloride 103 Carbon Dioxide 30 Anion Gap 5 L BUN 10 D Creatinine 0.7 Creat Clearance w eGFR > 60 Random Glucose 96 Calcium 8.6 Total Bilirubin 0.6 D AST 10 L D ALT 32 Alkaline Phosphatase 58 Total Protein 7.1 Albumin 3.6 Urine Color Yellow Urine Appearance Clear Urine pH 6.0 Ur Specific [place] 1.021 Urine Protein Negative Urine Glucose (UA) Negative Urine Ketones Negative Urine Blood Negative Urine Nitrite Negative Urine Bilirubin Negative Urine Urobilinogen Negative RPR Titer 07/20/17 07:00 WBC RBC Hgb Hct MCV MCH MCHC RDW Plt Count MPV Sodium Potassium Chloride Carbon Dioxide Anion Gap BUN Creatinine Creat Clearance w eGFR Random Glucose Calcium Total Bilirubin AST ALT Alkaline Phosphatase Total Protein Albumin Urine Color Urine Appearance Urine pH Ur Specific [place] Urine Protein Urine Glucose (UA) Urine Ketones Urine Blood Urine Nitrite Urine Bilirubin Urine Urobilinogen RPR Titer Nonreactive LABS NOTED. Assessment: 07/20/17 14:52 WITHDRAWAL SYMPTOMS. Plan: CONTINUE DETOX. INCREASE DAILY PO FLUID INTAKE. FLEXERIL PRN FOR BODY ACHES / MUSCLE SPASMS.
[2017-07-20] MEDS: traZODone HCL 50 MG TABLET (FP) PO SCH (22:24)
[2017-07-20] MEDS: THIAMINE HCL 100 MG TABLET (FP) PO SCH (22:24)
[2017-07-20] MEDS ORDERED: chlordiazePOXIDE HCL 25 MG CAPSULE PO SCH (23:00)
[2017-07-21] MEDS: ACETAMINOPHEN 325 MG TABLET (FP) PO PRN ×2 (02:30→22:30)
[2017-07-21] MEDS: ALBUTEROL SO4 18 GM HFA INHALER IH PRN ×4 (02:32→20:09)
[2017-07-21] MEDS ORDERED: METHADONE HCL 10 MG TABLET ONE (04:46)
[2017-07-21] MEDS ORDERED: METHADONE HCL 5 MG TABLET ONE (04:47)
[2017-07-21] MEDS ORDERED: METHADONE HCL 40 MG DISPERSABLE TABLET ONE (04:47)
[2017-07-21] MEDS: METHADONE 40 MG, METHADONE 10 MG, METHADONE 5 MG PO SCH (05:23)
[2017-07-21] MEDS: chlordiazePOXIDE HCL 25 MG CAPSULE PO SCH ×3 (05:24→17:27)
[2017-07-21] MEDS ORDERED: METHADONE HCL 5 MG TABLET (FOR DETOX USE ONLY) PO SCH (10:00)
[2017-07-21] MEDS: PRENATAL VITAMINS W/ FOLIC ACID TABLET (FP) PO SCH (10:49)
[2017-07-21] MEDS: CYCLOBENZAPRINE HCL 5 MG TABLET PO PRN ×2 (10:52→20:09)
[2017-07-21] MEDS: NICOTINE 21 MG/24 HOURS TOPICAL PATCH TD SCH (11:16)
[2017-07-21] MEDS: NICOTINE 14 MG/24 HOURS TOPICAL PATCH TD SCH (12:36)
--- NOTE | 2017-07-21 14:09 | PN ---
[facility] CIWA - CIWA Score Nausea/Vomitin-No Nausea/No Vomiting Muscle Tremors: 3 Anxiety: 4-Mod. Anxious/Guarded Agitation: 4-Moderately Restless Paroxysmal Sweats: 3 Orientation: 0-Oriented Tacttile Disturbances: 3-Moderate Itch/Numb/Burn Auditory Disturbances: 0-None Visual Disturbances: 0-None Headache: 0-None Present CIWA-Ar Total Score: 17 S COWS - Scale Resting Pulse: 0= [place] 80 or Below Sweatin= Chills/Flushing Restless Observation: 1= Difficult to Sit Still Pupil Size: 0= Normal to Room Light Bone or Joint Aches: 2= Severe Diffuse Aches Runny Nose/ Eye Tearin= None GI Upset > 30mins: 1= Stomach Cramp Tremor Observation of Outstretched Hands: 0= None Yawning Observation: 1= 1-2x During Session Anxiety or Irritability: 2=Irritable/Anxious Goose Flesh Skin: 3=Piloerection COWS Score: 11 [facility] Progress Note (SOAP) Subjective: Body Aches, Constipation, Interrupted Sleep, Sweating, Anxious, Stomach Cramping. Objective: PT. A & O X 3, OBSERVED AMBULATING ON UNIT. NO ACUTE DISTRESS. 07/21/17 14:10 Vital Signs Temperature 96.5 F L 07/21/17 09:42 Pulse Rate 77 07/21/17 09:42 Respiratory Rate 18 07/21/17 09:42 Blood Pressure 127/72 07/21/17 09:42 O2 Sat by Pulse Oximetry (%) Laboratory Tests 07/19/17 07/20/17 07/20/17 21:00 07:00 07:00 WBC 6.4 RBC 4.62 Hgb 13.5 Hct 40.4 MCV 87.6 MCH 29.2 MCHC 33.4 RDW 13.4 Plt Count 272 MPV 8.9 Sodium 138 Potassium 4.2 Chloride 103 Carbon Dioxide 30 Anion Gap 5 L BUN 10 D Creatinine 0.7 Creat Clearance w eGFR > 60 Random Glucose 96 Calcium 8.6 Total Bilirubin 0.6 D AST 10 L D ALT 32 Alkaline Phosphatase 58 Total Protein 7.1 Albumin 3.6 Urine Color Yellow Urine Appearance Clear Urine pH 6.0 Ur Specific [place] 1.021 Urine Protein Negative Urine Glucose (UA) Negative Urine Ketones Negative Urine Blood Negative Urine Nitrite Negative Urine Bilirubin Negative Urine Urobilinogen Negative Ur Leukocyte Esterase Negative RPR Titer 07/20/17 07:00 WBC RBC Hgb Hct MCV MCH MCHC RDW Plt Count MPV Sodium Potassium Chloride Carbon Dioxide Anion Gap BUN Creatinine Creat Clearance w eGFR Random Glucose Calcium Total Bilirubin AST ALT Alkaline Phosphatase Total Protein Albumin Urine Color Urine Appearance Urine pH Ur Specific [place] Urine Protein Urine Glucose (UA) Urine Ketones Urine Blood Urine Nitrite Urine Bilirubin Urine Urobilinogen Ur Leukocyte Esterase RPR Titer Nonreactive LABS NOTED. Assessment: 07/21/17 14:11 WITHDRAWAL SYMPTOMS. Plan: CONTINUE DETOX. INCREASE DAILY PO FLUID INTAKE.
[2017-07-21] MEDS: THIAMINE HCL 100 MG TABLET (FP) PO SCH (22:28)
[2017-07-21] MEDS: traZODone HCL 50 MG TABLET (FP) PO SCH (22:28)
[2017-07-21] MEDS: chlordiazePOXIDE 5 MG CAPSULE PO SCH (22:29)
[2017-07-21] MEDS ORDERED: chlordiazePOXIDE 5 MG CAPSULE PO SCH (23:00)
[2017-07-22] MEDS: IBUPROFEN 400 MG TABLET (FP) PO PRN ×3 (02:47→19:59)
[2017-07-22] MEDS: ALBUTEROL SO4 18 GM HFA INHALER IH PRN ×3 (02:48→19:30)
[2017-07-22] MEDS ORDERED: METHADONE HCL 5 MG TABLET ONE (04:17)
[2017-07-22] MEDS ORDERED: METHADONE HCL 40 MG DISPERSABLE TABLET ONE (04:17)
[2017-07-22] MEDS ORDERED: METHADONE HCL 10 MG TABLET ONE (04:17)
[2017-07-22] MEDS: METHADONE 40 MG, METHADONE 10 MG, METHADONE 5 MG PO SCH (05:26)
[2017-07-22] MEDS: chlordiazePOXIDE 5 MG CAPSULE PO SCH ×3 (05:27→17:54)
[2017-07-22] MEDS: NICOTINE 21 MG/24 HOURS TOPICAL PATCH TD SCH (10:41)
[2017-07-22] MEDS: PRENATAL VITAMINS W/ FOLIC ACID TABLET (FP) PO SCH (10:41)
[2017-07-22] MEDS: CYCLOBENZAPRINE HCL 5 MG TABLET PO PRN ×2 (10:45→22:21)
--- NOTE | 2017-07-22 13:37 | PN ---
[facility] Progress Note (SOAP) Subjective: Back pain, feeling depressed (denies SI/HI/AH/VH), anxious, interrupted sleep Objective: 07/22/17 13:36 Last Vital Signs Temp Pulse Resp BP Pulse Ox 97.2 F L 91 H 18 131/74 07/22/17 10:35 07/22/17 10:35 07/22/17 10:35 07/22/17 10:35 Laboratory Tests 07/19/17 07/20/17 07/20/17 21:00 07:00 07:00 WBC 6.4 RBC 4.62 Hgb 13.5 Hct 40.4 MCV 87.6 MCH 29.2 MCHC 33.4 RDW 13.4 Plt Count 272 MPV 8.9 Sodium 138 Potassium 4.2 Chloride 103 Carbon Dioxide 30 Anion Gap 5 L BUN 10 D Creatinine 0.7 Creat Clearance w eGFR > 60 Random Glucose 96 Calcium 8.6 Total Bilirubin 0.6 D AST 10 L D ALT 32 Alkaline Phosphatase 58 Total Protein 7.1 Albumin 3.6 Urine Color Yellow Urine Appearance Clear Urine pH 6.0 Ur Specific [place] 1.021 Urine Protein Negative Urine Glucose (UA) Negative Urine Ketones Negative Urine Blood Negative Urine Nitrite Negative Urine Bilirubin Negative Urine Urobilinogen Negative Ur Leukocyte Esterase Negative RPR Titer 07/20/17 07:00 WBC RBC Hgb Hct MCV MCH MCHC RDW Plt Count MPV Sodium Potassium Chloride Carbon Dioxide Anion Gap BUN Creatinine Creat Clearance w eGFR Random Glucose Calcium Total Bilirubin AST ALT Alkaline Phosphatase Total Protein Albumin Urine Color Urine Appearance Urine pH Ur Specific [place] Urine Protein Urine Glucose (UA) Urine Ketones Urine Blood Urine Nitrite Urine Bilirubin Urine Urobilinogen Ur Leukocyte Esterase RPR Titer Nonreactive Labs noted Assessment: 07/22/17 13:37 Withdrawal symptoms Plan: Continue detox
[2017-07-22] MEDS: ACETAMINOPHEN 325 MG TABLET (FP) PO PRN (15:42)
[2017-07-22] MEDS: LIDOCAINE VISCOUS 2% ORAL/TOP 20 ML UNIT-DOSE CUP MM PRN (20:56)
[2017-07-22] MEDS ORDERED: diphenhydrAMINE HCL 25 MG CAPSULE (FP) PO PRN (22:00)
[2017-07-22] MEDS: THIAMINE HCL 100 MG TABLET (FP) PO SCH (22:21)
[2017-07-22] MEDS: chlordiazePOXIDE HCL 10 MG CAPSULE PO SCH (22:21)
[2017-07-22] MEDS: traZODone HCL 50 MG TABLET (FP) PO SCH (22:21)
[2017-07-22] MEDS ORDERED: chlordiazePOXIDE HCL 10 MG CAPSULE PO SCH (23:00)
[2017-07-23] MEDS ORDERED: METHADONE HCL 10 MG TABLET ONE (04:09)
[2017-07-23] MEDS ORDERED: METHADONE HCL 40 MG DISPERSABLE TABLET ONE (04:10)
[2017-07-23] MEDS ORDERED: METHADONE HCL 5 MG TABLET ONE (04:10)
[2017-07-23] MEDS: METHADONE 40 MG, METHADONE 10 MG, METHADONE 5 MG PO SCH (05:19)
[2017-07-23] MEDS: chlordiazePOXIDE HCL 10 MG CAPSULE PO SCH ×3 (05:19→17:45)
[2017-07-23] MEDS: LIDOCAINE VISCOUS 2% ORAL/TOP 20 ML UNIT-DOSE CUP MM PRN ×3 (07:28→22:33)
[2017-07-23] MEDS: ALBUTEROL SO4 2.5/IPRATROPIUM 0.5 INH SOL 3 ML VIAL.NEB. NEB PRN ×3 (09:16→22:49)
[2017-07-23] MEDS ORDERED: METHADONE HCL 10 MG TABLET (FOR DETOX USE ONLY) PO SCH (10:00)
[2017-07-23] MEDS: PRENATAL VITAMINS W/ FOLIC ACID TABLET (FP) PO SCH (10:26)
[2017-07-23] MEDS: NICOTINE 21 MG/24 HOURS TOPICAL PATCH TD SCH (10:26)
--- NOTE | 2017-07-23 12:19 | PN ---
[facility] Progress Note (SOAP) Subjective: Constipation, Body Aches, Sweating. Objective: PT. A & O X 3, OBSERVED AMBULATING ON UNIT. NO ACUTE DISTRESS. 07/23/17 12:17 Vital Signs Temperature 95.8 F L 07/23/17 09:23 Pulse Rate 93 H 07/23/17 09:23 Respiratory Rate 19 07/23/17 09:23 Blood Pressure 132/79 07/23/17 09:23 O2 Sat by Pulse Oximetry (%) Laboratory Tests 07/19/17 07/20/17 07/20/17 21:00 07:00 07:00 WBC 6.4 RBC 4.62 Hgb 13.5 Hct 40.4 MCV 87.6 MCH 29.2 MCHC 33.4 RDW 13.4 Plt Count 272 MPV 8.9 Sodium 138 Potassium 4.2 Chloride 103 Carbon Dioxide 30 Anion Gap 5 L BUN 10 D Creatinine 0.7 Creat Clearance w eGFR > 60 Random Glucose 96 Calcium 8.6 Total Bilirubin 0.6 D AST 10 L D ALT 32 Alkaline Phosphatase 58 Total Protein 7.1 Albumin 3.6 Urine Color Yellow Urine Appearance Clear Urine pH 6.0 Ur Specific [place] 1.021 Urine Protein Negative Urine Glucose (UA) Negative Urine Ketones Negative Urine Blood Negative Urine Nitrite Negative Urine Bilirubin Negative Urine Urobilinogen Negative Ur Leukocyte Esterase Negative RPR Titer 07/20/17 07:00 WBC RBC Hgb Hct MCV MCH MCHC RDW Plt Count MPV Sodium Potassium Chloride Carbon Dioxide Anion Gap BUN Creatinine Creat Clearance w eGFR Random Glucose Calcium Total Bilirubin AST ALT Alkaline Phosphatase Total Protein Albumin Urine Color Urine Appearance Urine pH Ur Specific [place] Urine Protein Urine Glucose (UA) Urine Ketones Urine Blood Urine Nitrite Urine Bilirubin Urine Urobilinogen Ur Leukocyte Esterase RPR Titer Nonreactive LABS NOTED. Assessment: 07/23/17 12:17 WITHDRAWAL SYMPTOMS. Plan: PATIENT SCHEDULED FOR DISCHARGE TODAY, AWAITING REPORT FROM [employer] ATTENDANT MR. Niraj STROUD FOR DETERMINATION REGARDING AFTERCARE PLAN.
[2017-07-23] MEDS: IBUPROFEN 400 MG TABLET (FP) PO PRN ×2 (13:07→22:32)
[2017-07-23] MEDS: ALBUTEROL SO4 18 GM HFA INHALER IH PRN ×3 (14:03→17:46)
[2017-07-23] MEDS: ACETAMINOPHEN 325 MG TABLET (FP) PO PRN (17:47)
[2017-07-23] MEDS: traZODone HCL 50 MG TABLET (FP) PO SCH (22:29)
[2017-07-23] MEDS: THIAMINE HCL 100 MG TABLET (FP) PO SCH (22:29)
[2017-07-23] MEDS: CYCLOBENZAPRINE HCL 10 MG TABLET (FP) PO PRN (22:32)
[2017-07-24] MEDS: ALBUTEROL SO4 18 GM HFA INHALER IH PRN ×2 (02:54→08:09)
[2017-07-24] MEDS ORDERED: METHADONE HCL 5 MG TABLET ONE (04:28)
[2017-07-24] MEDS ORDERED: METHADONE HCL 10 MG TABLET ONE (04:28)
[2017-07-24] MEDS ORDERED: METHADONE HCL 40 MG DISPERSABLE TABLET ONE (04:29)
[2017-07-24] MEDS: METHADONE 40 MG, METHADONE 10 MG, METHADONE 5 MG PO SCH (05:24)
[2017-07-24] MEDS: ACETAMINOPHEN 325 MG TABLET (FP) PO PRN (05:27)
[2017-07-24] MEDS: CYCLOBENZAPRINE HCL 10 MG TABLET (FP) PO PRN (05:27)
[2017-07-24] MEDS ORDERED: METHADONE HCL 5 MG TABLET (FOR DETOX USE ONLY) PO SCH (06:00)
[2017-07-24 09:15] VITALS: BP 126/86; PULSE 101; TEMP 97.4
[2017-07-24] MEDS: PRENATAL VITAMINS W/ FOLIC ACID TABLET (FP) PO SCH (09:17)
[2017-07-24] MEDS: NICOTINE 21 MG/24 HOURS TOPICAL PATCH TD SCH (09:17)
[2017-07-24] MEDS: LIDOCAINE VISCOUS 2% ORAL/TOP 20 ML UNIT-DOSE CUP MM PRN (09:40)
--- NOTE | 2017-07-24 11:48 | DS ---
[facility] Detox Discharge Summary Admission Date: 07/19/17 Discharge Date: 07/24/17 - History Present History: Alcohol Dependence, Cannabis Dependence Pertinent Past History: asthma - Physical Exam Results Vital Signs: Vital Signs Temperature 97.4 F L 07/24/17 09:15 Pulse Rate 101 H 07/24/17 09:15 Respiratory Rate 16 07/24/17 09:15 Blood Pressure 126/86 07/24/17 09:15 O2 Sat by Pulse Oximetry (%) Pertinent Admission Physical Exam Findings: withdrawal sx Laboratory Last Values WBC 6.4 K/mm3 (4.0-10.0) 07/20/17 07:00 RBC 4.62 M/mm3 (4.00-5.60) 07/20/17 07:00 Hgb 13.5 GM/dL (11.7-16.9) 07/20/17 07:00 Hct 40.4 % (35.4-49) 07/20/17 07:00 MCV 87.6 fl (80-96) 07/20/17 07:00 MCH 29.2 pg (25.7-33.7) 07/20/17 07:00 MCHC 33.4 g/dl (32.0-35.9) 07/20/17 07:00 RDW 13.4 % (11.9-15.9) 07/20/17 07:00 Plt Count 272 K/MM3 (134-434) 07/20/17 07:00 MPV 8.9 fl (7.5-11.1) 07/20/17 07:00 Sodium 138 mmol/L (136-145) 07/20/17 07:00 Potassium 4.2 mmol/L (3.5-5.1) 07/20/17 07:00 Chloride 103 mmol/L (98-107) 07/20/17 07:00 Carbon Dioxide 30 mmol/L (21-32) 07/20/17 07:00 Anion Gap 5 (8-16) L 07/20/17 07:00 BUN 10 mg/dL (7-18) D 07/20/17 07:00 Creatinine 0.7 mg/dL (0.7-1.3) 07/20/17 07:00 Creat Clearance w eGFR > 60 (>60) 07/20/17 07:00 Random Glucose 96 mg/dL (74-106) 07/20/17 07:00 Calcium 8.6 mg/dL (8.5-10.1) 07/20/17 07:00 Total Bilirubin 0.6 mg/dL (0.2-1.0) D 07/20/17 07:00 AST 10 U/L (15-37) L D 07/20/17 07:00 ALT 32 U/L (12-78) 07/20/17 07:00 Alkaline Phosphatase 58 U/L (45-117) 07/20/17 07:00 Total Protein 7.1 g/dl (6.4-8.2) 07/20/17 07:00 Albumin 3.6 g/dl (3.4-5.0) 07/20/17 07:00 Urine Color Yellow 07/19/17 21:00 Urine Appearance Clear 07/19/17 21:00 Urine pH 6.0 (5.0-8.0) 07/19/17 21:00 Ur Specific [place] 1.021 (1.001-1.035) 07/19/17 21:00 Urine Protein Negative (NEGATIVE) 07/19/17 21:00 Urine Glucose (UA) Negative (NEGATIVE) 07/19/17 21:00 Urine Ketones Negative (NEGATIVE) 07/19/17 21:00 Urine Blood Negative (NEGATIVE) 07/19/17 21:00 Urine Nitrite Negative (NEGATIVE) 07/19/17 21:00 Urine Bilirubin Negative (NEGATIVE) 07/19/17 21:00 Urine Urobilinogen Negative mg/dL (0.2-1.0) 07/19/17 21:00 Ur Leukocyte Esterase Negative (NEGATIVE) 07/19/17 21:00 RPR Titer Nonreactive (NONREACTIVE) 07/20/17 07:00 lab noted - Treatment Hospital Course: Detox Protocol Followed, Detoxed Safely, Responded well, Discharged Condition Good, Rehab Referral Accepted Patient has Accepted a Rehab Referral to: as per counselor arranged - Medication Discharge Medications: Ambulatory Orders Trazodone HCl [Desyrel -] 100 mg PO HS 07/19/17 Albuterol Sulfate Inhaler - [Ventolin HFA Inhaler -] 2 inh IH Q4H PRN #1 inh 07/29 - Diagnosis (1) Alcohol dependence with uncomplicated withdrawal Status: Acute (2) Sedative, hypnotic or anxiolytic dependence, uncomplicated Status: Acute (3) Asthma Status: Chronic Qualifiers: Asthma severity: mild Asthma complication type: uncomplicated (4) Cocaine dependence, uncomplicated Status: Chronic (5) Methadone maintenance therapy patient Status: Chronic - AMA Did Patient Leave Against Medical Advice: No
== END 2017-07-24 09:45 | disposition home or self-care (01) | DRG 773 ==
LOC: YASAS 12:39 → Y3N 18:17
PROVIDERS: ADMIT Internal Medicine; ATTEND Internal Medicine
PROC: HZ2ZZZZ Detoxification Services for Substance Abuse Treatment (ICD-10-PCS; principal; 2017-07-19)
DX: F11.20 Opioid dependence, uncomplicated (principal); F13.230 Sedative, hypnotic or anxiolytic dependence with withdrawal, uncomplicated; F10.230 Alcohol dependence with withdrawal, uncomplicated; F14.10 Cocaine abuse, uncomplicated; F19.24 Other psychoactive substance dependence with psychoactive substance-induced mood disorder; F19.282 Other psychoactive substance dependence with psychoactive substance-induced sleep disorder; J45.909 Unspecified asthma, uncomplicated; Z59.0 Homelessness
CPT/HCPCS: 36415; 80053; 81003; 85027; 86593; 93005; 93010; 94640

== ENCOUNTER 2018-09-17 08:45 | Emergency (ER) | payer OTHER ==
[2018-09-17 08:51] VITALS: BP 130/69; PULSE 83; TEMP 97.7; BMI 34.1
--- NOTE | 2018-09-17 09:13 | PDOC ---
History of Present Illness - General Chief Complaint: Urinary Problem Stated Complaint: URINE PROBLEM Time Seen by Provider: 09/17/18 09:10 History Source: Patient Exam Limitations: No Limitations - History of Present Illness Initial Comments: 09/17/18 09:14 This is a 27 years old male with long history of multisubstance abuse (EtOH, cocaine, marijuana, nicotine), asthma and depression, who presents with burning on urination. Patient states that he has had a difficult time initiating urination x 2d, unable to produce only a small amount of clear yellow urine for UA and complains of severe 8/10 burning urethral pain as well as pelvic pressure. This happened once in the past and remitted spontaneously. Patient was at [facility] yesterday where he was diagnosed with UTI and urinary retention, was given 1 dose of cipro and dcd. patient did not fill his cipro script and therefore has not taken abx today. 09/17/18 09:36 09/17/18 09:41 Past History - Past Medical History Allergies/Adverse Reactions: Allergies Allergy/AdvReac Type Severity Reaction Status Date / Time Fish Containing Products Allergy Severe Difficulty Verified 09/17/18 08:48 [Fish Product Derivatives] Breathing shellfish derived Allergy Severe Difficulty Verified 09/17/18 08:48 [Shellfish Derived] Breathing mushroom Allergy Severe Swelling Uncoded 09/17/18 08:48 Home Medications: Ambulatory Orders Albuterol Sulfate Inhaler - [Ventolin HFA Inhaler -] 2 inh IH Q4H PRN #1 inh 07/29 Cefpodoxime Proxetil [Vantin (Nf) -] 100 mg PO BID #14 tablet 09/17/18 Anemia: No Asthma: Yes (Pt is on MDI) Cancer: No Cardiac Disorders: No CVA: No COPD: No CHF: No Dementia: No Diabetes: No GI Disorders: No Disorders: No HTN: No Hypercholesterolemia: No Kidney Stones: No Liver Disease: No Seizures: No Thyroid Disease: No - Surgical History Abdominal Surgery: No Appendectomy: No Cardiac Surgery: No Cholecystectomy: No Lung Surgery: No Neurologic Surgery: No Orthopedic Surgery: No - Reproductive History Testicular Surgery: No - Immunization History Td Vaccination: (unknown) TDAP Vaccination: (unknown) Immunization Up to Date: Yes - Suicide/Smoking/Psychosocial Hx Smoking Status: Yes Smoking History: Current every day smoker Years of Tobacco Use: 0 Have you smoked in the past 12 months: Yes Number of Cigarettes Smoked Daily: 5 Cigars Per Day: 0 Information on smoking cessation initiated: No 'Breaking Loose' booklet given: 07/19/17 Hx Alcohol Use: No Drug/Substance Use Hx: No Substance Use Type: Alcohol, Cocaine, Heroin, Marijuana Hx Substance Use Treatment: Yes ([facility]) Review of Systems - Review of Systems Able to Perform ROS?: Yes Is the patient limited [place] proficient: No Constitutional: No: Chills, Fever, Weakness Respiratory: No: Cough, Shortness of Breath Cardiac (ROS): No: Chest Pain, Lightheadedness, Palpitations ABD/GI: Yes: Other (pelvic fullness ). No: Abdominal Distended, Constipated, Diarrhea, Nausea, Vomiting, Abdominal cramping : Yes: Burning, Dysuria. No: Discharge, Flank Pain, Hematuria, Incontinence, Testicular Mass, Testicular Swelling Musculoskeletal: No: Back Pain Neurological: No: Headache, Numbness, Paresthesia Psychiatric: No: Anxiety, Depression *Physical Exam - Vital Signs Last Vital Signs Temp Pulse Resp BP Pulse Ox 97.7 F 83 18 130/69 100 09/17/18 08:48 09/17/18 08:48 09/17/18 08:48 09/17/18 08:48 09/17/18 08:48 - Physical Exam General Appearance: Yes: Nourished, Appropriately Dressed, Mild Distress HEENT: positive: EOMI, Normal Voice, Symmetrical Neck: positive: Trachea midline, Supple. negative: Tender Respiratory/Chest: positive: Lungs Clear, Normal Breath Sounds Cardiovascular: positive: Regular Rhythm, Regular Rate, S1, S2 Gastrointestinal/Abdominal: positive: Normal Bowel Sounds, Flat, Soft, Other ( pelvic fullness ). negative: Tender, Organomegaly Male Genitalia: positive: normal genitalia. negative: discharge, hematuria Musculoskeletal: negative: CVA Tenderness Integumentary: positive: Normal Color, Dry Neurologic: positive: stem sizer II-XII NML intact (grossly ) Moderate Sedation - Procedure Monitoring Vital Signs: Procedure Monitoring Vital Signs Temperature 97.7 F 09/17/18 08:48 Pulse Rate 83 09/17/18 08:48 Respiratory Rate 18 09/17/18 08:48 Blood Pressure 130/69 09/17/18 08:48 O2 Sat by Pulse Oximetry (%) 100 09/17/18 08:48 ED Treatment Course - ADDITIONAL ORDERS Additional order review: 09/17/18 11:44 ua negative for infection but patient did take abx yesterday renal US unremarkable given prior uti diagnosis, will give 1 dose of bactrim, will straight cath for relief prescribe a course of vantin 100 bid x 7 d *DC/Admit/Observation/Transfer Diagnosis at time of Disposition: Urinary tract infection - Discharge Dispostion Disposition: HOME Condition at time of disposition: Stable Decision to Admit order: No - Prescriptions Prescriptions: Cefpodoxime Proxetil [Vantin (Nf) -] 100 mg PO BID #14 tablet - Referrals Referrals: ON STAFF,NOT [Primary Care Provider] - Kiko Beck MD [Staff Physician] - - Patient Instructions Additional Instructions: your pain is due to a urinary tract infection. your kidney ultrasound was unremarkable. we prescrined you antibiotic Vantin (cefadoxime) 100mg twice a day for 7 days. take one dose tonight. Do not take Ciprofloxacin which was prescribed to your yesterday, it does not work as well. Since it is not normal for men to have urinary tract infection, please see a urologist. you will find his referral information in the paperwork. - Post Discharge Activity
--- NOTE | 2018-09-17 09:17 | PDOC ---
Attending Attestation - Resident Resident Name: FaithLeisa - ED Attending Attestation I have performed the following: I have examined & evaluated the patient, The case was reviewed & discussed with the resident, I agree w/resident's findings & plan, Exceptions are as noted - HPI HPI: 09/17/18 09:30 27 yo M h/o asthma, presenting with burning on Urination He reports decreased Urine output, denies pelvic pain No fevers or chills Denies new sexual partner, Denies prior STD Denies testicular pain or swelling He was seen yesterday at [facility] Was diagnosed with a UTI and given Cipro He did not picker tender his prescription at the pharmacy 09/18/18 08:12 - Physicial Exam PE: 09/17/18 09:31 On examination: A&O x 3 RRR CTA External genitalia nml No flank pain or tenderness 09/18/18 08:13 - Medical Decision Making 09/17/18 10:33 Laboratory Tests 09/17/18 09:50 Urine Blood Negative Urine Nitrite Negative Ur Leukocyte Esterase Negative 09/18/18 08:13 Will discharge to home It is still unclear to me if he possibly has a UTI that is being masked by abx given yesterday vs. STD (results pending) vs. cystitis vs. prostate enlargement/inflammation Pt asked to follow up with Urologist Take antibiotics as prescribed Return to the ER for any other concerns or complaints
[2018-09-17] MEDS ORDERED: LIDOCAINE HCL 2% JELLY (5 ML/TUBE) TP ONE (09:33)
[2018-09-17] MEDS ORDERED: TAMSULOSIN HCL 0.4 MG CAP PO ONE (09:33)
[2018-09-17] MEDS ORDERED: KETOROLAC TROMETHAMINE 30 MG/1 ML VIAL IVPUSH ONE (09:34)
[2018-09-17] MEDS ORDERED: KETOROLAC TROMETHAMINE 30 MG/1 ML VIAL ONE (09:38)
[2018-09-17] MEDS ORDERED: TAMSULOSIN HCL 0.4 MG CAP ONE (09:38)
[2018-09-17] MEDS ORDERED: CIPROFLOXACIN 500 MG TABLET (RESTRICTED TO ID) PO ONE (09:39)
[2018-09-17] MEDS ORDERED: KETOROLAC TROMETHAMINE 30 MG/1 ML VIAL IM ONE (09:40)
[2018-09-17] MEDS ORDERED: SULFAMETHOXAZOLE/TRIMETHOPRIM 800MG/160MG D.S. TABLET PO ONE (09:43)
[2018-09-17] MEDS ORDERED: SULFAMETHOXAZOLE/TRIMETHOPRIM 800MG/160MG D.S. TABLET ONE (09:47)
[2018-09-17 10:26] LABS: URINE APPEARANCE CLEAR; URINE BILIRUBIN NEGATIVE (<2.0 mg/dL); URINE COLOR LTYELLOW; URINE GLUCOSE (UA) NEGATIVE (NEGATIVE); URINE KETONE NEGATIVE (NEGATIVE); URINE LEUK ESTERASE NEGATIVE (NEGATIVE); URINE NITRITE NEGATIVE (NEGATIVE); URINE PROTEIN NEGATIVE (NEGATIVE); URINE UROBILINOGEN NEGATIVE mg/dL (0.2-1.0)
== END 2018-09-17 11:54 | disposition home or self-care (01) ==
LOC: JER 08:45
PROC: 0T9B7ZZ Drainage of Bladder, Via Natural or Artificial Opening (ICD-10-PCS; principal; 2018-09-17)
DX: N39.0 Urinary tract infection, site not specified (principal)
CPT/HCPCS: 36415; 51702; 76775-TC; 81003; 87086; 87491; 87591; 87661; 99282-25

== ENCOUNTER 2018-09-19 01:35 | Emergency (ER) | payer OTHER ==
[2018-09-19 02:38] VITALS: BP 123/62; PULSE 78; TEMP 98.3; BMI 35.2
--- NOTE | 2018-09-19 05:11 | PDOC ---
*Physical Exam - Vital Signs Last Vital Signs Temp Pulse Resp BP Pulse Ox 98.3 F 78 18 123/62 97 09/19/18 01:39 09/19/18 01:39 09/19/18 01:39 09/19/18 01:39 09/19/18 01:39 Medical Decision Making - Medical Decision Making 09/19/18 05:11 Patient seen by the advanced practice provider under my direct supervision. Ancillary testing reviewed as necessary. I agree with plan as outlined by the advanced practice provider. *DC/Admit/Observation/Transfer Diagnosis at time of Disposition: Urinary anomaly - Discharge Dispostion Disposition: HOME Condition at time of disposition: Stable - Referrals Referrals: Jeremy Shook MD [Staff Physician] - Call tomorrow - Patient Instructions Printed Discharge Instructions: DI for Urinary Retention in Men Additional Instructions: Thank you for choosing [facility]. It was a pleasure taking care of you. Please follow-up with urologist for further work-up on your symptoms. Return to the Emergency Department if your symptoms worsen or persist, you have fever, shortness of breath, chest pain, severe abdominal pain, vomiting, unable to control bowel or bladder movements, numbness around groin, weakness of legs or other concerning symptoms. - Post Discharge Activity
--- NOTE | 2018-09-19 06:12 | PDOC ---
History of Present Illness - General Chief Complaint: Urinary Problem Stated Complaint: URINARY PROBLEM Time Seen by Provider: 09/19/18 04:40 History Source: Patient Exam Limitations: No Limitations Past History - Past Medical History Allergies/Adverse Reactions: Allergies Allergy/AdvReac Type Severity Reaction Status Date / Time Fish Containing Products Allergy Severe Difficulty Verified 09/19/18 05:01 [Fish Product Derivatives] Breathing shellfish derived Allergy Severe Difficulty Verified 09/19/18 05:01 [Shellfish Derived] Breathing mushroom Allergy Severe Swelling Uncoded 09/19/18 05:01 Home Medications: Ambulatory Orders Cefpodoxime Proxetil [Vantin (Nf) -] 100 mg PO BID #14 tablet 09/17/18 Anemia: No Asthma: Yes (Pt is on MDI) Cancer: No Cardiac Disorders: No CVA: No COPD: No CHF: No Dementia: No Diabetes: No GI Disorders: No Disorders: No HTN: No Hypercholesterolemia: No Kidney Stones: No Liver Disease: No Seizures: No Thyroid Disease: No - Surgical History Abdominal Surgery: No Appendectomy: No Cardiac Surgery: No Cholecystectomy: No Lung Surgery: No Neurologic Surgery: No Orthopedic Surgery: No - Reproductive History Testicular Surgery: No - Immunization History Td Vaccination: (unknown) TDAP Vaccination: (unknown) Immunization Up to Date: Yes - Suicide/Smoking/Psychosocial Hx Smoking Status: Yes Smoking History: Never smoked Years of Tobacco Use: 0 Have you smoked in the past 12 months: No Number of Cigarettes Smoked Daily: 5 Cigars Per Day: 0 Information on smoking cessation initiated: No 'Breaking Loose' booklet given: 07/19/17 Hx Alcohol Use: No Drug/Substance Use Hx: No Substance Use Type: Alcohol, Cocaine, Heroin, Marijuana Hx Substance Use Treatment: Yes ([facility]) *Physical Exam - Vital Signs Last Vital Signs Temp Pulse Resp BP Pulse Ox 98.3 F 78 18 123/62 97 09/19/18 01:39 09/19/18 01:39 09/19/18 01:39 09/19/18 01:39 09/19/18 01:39 - Physical Exam General Appearance: No: Apparent Distress Respiratory/Chest: positive: Lungs Clear, Normal Breath Sounds. negative: Respiratory Distress Cardiovascular: positive: Regular Rhythm, Regular Rate, S1, S2. negative: Murmur Gastrointestinal/Abdominal: positive: Normal Bowel Sounds, Soft. negative: Tender, Distended, Guarding, Rebound Musculoskeletal: negative: CVA Tenderness Integumentary: positive: Normal Color Neurologic: positive: Alert, Normal Mood/Affect Moderate Sedation - Procedure Monitoring Vital Signs: Procedure Monitoring Vital Signs Temperature 98.3 F 09/19/18 01:39 Pulse Rate 78 09/19/18 01:39 Respiratory Rate 18 09/19/18 01:39 Blood Pressure 123/62 09/19/18 01:39 O2 Sat by Pulse Oximetry (%) 97 09/19/18 01:39 Medical Decision Making - Medical Decision Making 28 y/o M with hx of polysubstance abuse (on Suboxone for around 2-3 years), asthma, depressions presents with difficulty urinating since 4 days ago. Was seen in [facility] initially, told he had UTI and given 1 dose of Ceftriaxone. Then seen in our ED 2 days ago, had normal UA, but discharged on abx. Also had renal ultrasound done which was normal. Urine culture from that visit was negative. Denies dysuria, hematuria, fever, sob, cp, abd pain, n/v, testicular pain, unusual penile discharge, rectal pain, leg weakness, numbness around groin, back pain Unclear cause of retention Not suspicious for cauda equina Patient does not appear distended or uncomfortable (last visit, patient had straight cath done) Consider ?BPH (though patient young) Unlikely from medication use as has been on the same medication for long time Offered Torres, but patient refused Will refer to urology for further eval 09/19/18 06:05 *DC/Admit/Observation/Transfer Diagnosis at time of Disposition: Urinary anomaly - Discharge Dispostion Disposition: HOME Condition at time of disposition: Stable Decision to Admit order: No - Referrals Referrals: Jeremy Shook MD [Staff Physician] - Call tomorrow - Patient Instructions Printed Discharge Instructions: DI for Urinary Retention in Men Additional Instructions: Thank you for choosing [facility]. It was a pleasure taking care of you. Please follow-up with urologist for further work-up on your symptoms. Return to the Emergency Department if your symptoms worsen or persist, you have fever, shortness of breath, chest pain, severe abdominal pain, vomiting, unable to control bowel or bladder movements, numbness around groin, weakness of legs or other concerning symptoms. - Post Discharge Activity
== END 2018-09-19 06:43 | disposition home or self-care (01) ==
LOC: JER 01:35
DX: R39.198 Other difficulties with micturition (principal); J45.909 Unspecified asthma, uncomplicated; F32.9 Major depressive disorder, single episode, unspecified; Z79.899 Other long term (current) drug therapy
CPT/HCPCS: 99281-25

== ENCOUNTER 2024-05-31 14:44 | Inpatient (IN) | payer BC ==
[2024-05-31 15:09] VITALS: BMI 34.3
[2024-05-31] MEDS ORDERED: NALOXONE (NYS OPIOID OVERDOSE PROGRAM) 4 MG/0.1 ML SPRAY NS PRN (17:30)
[2024-05-31] MEDS ORDERED: MAGNESIUM HYDROX 2400MG/30ML ORAL SUSPENSION 30 ML CUP PO PRN (17:30)
[2024-05-31] MEDS ORDERED: LOPERAMIDE HCL 2 MG CAPSULE PO PRN (17:30)
[2024-05-31] MEDS ORDERED: POLYETHYLENE GLYCOL (HEALTHYLAX) 3350 17 GM PACKET PO PRN (17:30)
[2024-05-31] MEDS ORDERED: MAG HYDROX/AL HYDROX/SIMETH 30 ML UNIT-DOSE CUP PO PRN (17:30)
[2024-05-31] MEDS ORDERED: BENZOCAINE/MENTHOL (CHLORASEPTIC ) LOZENGE MM PRN (17:30)
[2024-05-31] MEDS ORDERED: ACETAMINOPHEN 325 MG TABLET (FP) PO PRN (17:30)
[2024-05-31] MEDS ORDERED: NALOXONE (NARCAN) HCL 4 MG/0.1 ML SPRAY NS PRN (17:30)
[2024-05-31] MEDS ORDERED: BISMUTH SUBSALICYLATE 524 MG/30 ML PO PRN (17:30)
[2024-05-31] MEDS ORDERED: BENZONATATE 200 MG CAPSULE PO PRN (17:30)
[2024-05-31] MEDS ORDERED: guaiFENesin 600 MG TABLET.ER (FP) PO PRN (17:30)
[2024-05-31] MEDS: ALBUTEROL SO4 HFA INHALER IH PRN (18:40)
[2024-05-31] MEDS: METHOCARBAMOL 500 MG TABLET PO PRN (18:45)
[2024-05-31 19:34] LABS: PH,URINE 6.5 (5.0-8.0); URINE APPEARANCE CLEAR; URINE BILIRUBIN NEGATIVE (NEGATIVE); URINE COLOR YELLOW; URINE GLUCOSE (UA) NEGATIVE (NEGATIVE); URINE KETONE NEGATIVE (NEGATIVE); URINE LEUK ESTERASE NEGATIVE (NEGATIVE); URINE NITRITE NEGATIVE (NEGATIVE); URINE PROTEIN NEGATIVE (NEGATIVE)
[2024-05-31] MEDS: hydrOXYzine PAMOATE 25 MG CAPSULE (FP) PO PRN (22:23)
[2024-05-31] MEDS: diazePAM 5 MG TABLET PO SCH (22:23)
[2024-05-31] MEDS: THIAMINE 100 MG TABLET PO SCH (22:23)
[2024-05-31] MEDS: MELATONIN 5 MG TABLETS PO SCH (22:23)
[2024-06-01] MEDS: methaDONE HCL 10 MG TABLET PO ONE (05:34)
[2024-06-01] MEDS: PRENATAL VITAMINS W/ FOLIC ACID TABLET (FP) PO SCH (10:09)
[2024-06-01] MEDS: ONDANSETRON *ODT* 4 MG TABLET SL PRN (10:12)
[2024-06-01] MEDS: DICYCLOMINE HCL 10 MG CAPSULE PO PRN (10:12)
[2024-06-01 11:11] LABS: HEMATOCRIT 36.6 % (35.4-49); HEMOGLOBIN 12.1 GM/dL (11.7-16.9); MCHC 32.9 g/dl (32.0-35.9); MEAN CELL VOLUME 82.1 fl (80-96); MEAN PLT VOLUME 8.4 fl (7.5-11.1); PLATELET COUNT 367 10^3/uL (134-434); RBC 4.46 M/mm3 (4.00-5.60); RDW 14.5 % (11.9-15.9); WHITE BLOOD COUNT 6.5 K/mm3 (4.0-10.0)
[2024-06-01 11:14] LABS: CHLORIDE 102 mmol/L (98-107); POTASSIUM 4.2 mmol/L (3.5-5.1); SODIUM 138 mmol/L (136-145)
[2024-06-01 11:20] LABS: ALBUMIN 3.9 g/dl (3.4-5.0)
[2024-06-01 11:21] LABS: ANION GAP 6 mmol/L (4-13); BLOOD UREA NITROGEN 9.1 mg/dL (7-18); CALCIUM 9.7 mg/dL (8.5-10.1); CO2 31 mmol/L (21-32); GLUCOSE,RANDOM 87 mg/dL (74-106)
[2024-06-01 11:23] LABS: SGOT/AST 32 U/L (15-37); SGPT/ALT 52 U/L (13-61)
[2024-06-01 11:24] LABS: CREATININE 0.8 mg/dL (0.55-1.3)
[2024-06-01 11:25] LABS: BILIRUBIN,TOTAL 0.5 mg/dL (0.2-1); TOT PROT 8.5 g/dl (6.4-8.2)
[2024-06-01 11:26] LABS: ALK PHOS 375 U/L (45-117)
[2024-06-01] MEDS: IBUPROFEN 600 MG TABLET (FP) PO PRN (17:17)
[2024-06-01] MEDS: traZODone HCL 50 MG TABLET (FP) PO PRN (22:28)
[2024-06-02] MEDS: diazePAM 5 MG TABLET PO SCH (05:31)
[2024-06-02] MEDS: IBUPROFEN 400 MG TABLET (FP) PO PRN (05:34)
[2024-06-02] MEDS ORDERED: ALBUTEROL SO4 HFA INHALER IH PRN (10:04)
[2024-06-02] MEDS ORDERED: methaDONE HCL 10 MG TABLET PO SCH (10:15)
[2024-06-03] MEDS: diazePAM 5 MG TABLET PO SCH (05:16)
[2024-06-03] MEDS: diazePAM 5 MG TABLET PO PRN (09:21)
[2024-06-04] MEDS: diazePAM 5 MG TABLET PO ONE (05:15)
[2024-06-05 09:16] VITALS: BP 152/89; PULSE 68; RESP 19; TEMP 97.5
== END 2024-06-05 11:58 | disposition other institution (70) | DRG 773 ==
LOC: YASAS 14:44 → Y3N 18:08
PROVIDERS: ADMIT Allergy & Immunology; ATTEND Surgery
PROC: HZ2ZZZZ Detoxification Services for Substance Abuse Treatment (ICD-10-PCS; principal; 2024-05-31)
DX: F10.230 Alcohol dependence with withdrawal, uncomplicated (principal); F11.20 Opioid dependence, uncomplicated; F19.282 Other psychoactive substance dependence with psychoactive substance-induced sleep disorder; F41.9 Anxiety disorder, unspecified; G47.00 Insomnia, unspecified; J45.909 Unspecified asthma, uncomplicated; Z87.891 Personal history of nicotine dependence
CPT/HCPCS: 36415; 80053; 80305; 80307; 81003; 85027; 86780; 93005; 93010; Q0162

== ENCOUNTER 2024-06-05 12:08 | Inpatient (IN) | payer BC ==
[2024-06-05] MEDS ORDERED: ACETAMINOPHEN 325 MG TABLET (FP) PO PRN (13:06)
[2024-06-05] MEDS ORDERED: METHOCARBAMOL 500 MG TABLET PO PRN (13:06)
[2024-06-05] MEDS ORDERED: MAGNESIUM HYDROX 2400MG/30ML ORAL SUSPENSION 30 ML CUP PO PRN (13:06)
[2024-06-05] MEDS ORDERED: hydrOXYzine PAMOATE 25 MG CAPSULE (FP) PO PRN (13:06)
[2024-06-05] MEDS ORDERED: BENZOCAINE/MENTHOL (CHLORASEPTIC ) LOZENGE MM PRN (13:06)
[2024-06-05] MEDS ORDERED: IBUPROFEN 600 MG TABLET (FP) PO PRN (13:06)
[2024-06-05] MEDS ORDERED: LOPERAMIDE HCL 2 MG CAPSULE PO PRN (13:06)
[2024-06-05] MEDS ORDERED: IBUPROFEN 400 MG TABLET (FP) PO PRN (13:06)
[2024-06-05] MEDS ORDERED: guaiFENesin 600 MG TABLET.ER (FP) PO PRN (13:06)
[2024-06-05] MEDS ORDERED: POLYETHYLENE GLYCOL (HEALTHYLAX) 3350 17 GM PACKET PO PRN (13:06)
[2024-06-05] MEDS ORDERED: BENZONATATE 200 MG CAPSULE PO PRN (13:06)
[2024-06-05] MEDS: ALBUTEROL SO4 HFA INHALER IH PRN (17:21)
[2024-06-05] MEDS: THIAMINE 100 MG TABLET PO SCH (21:51)
[2024-06-05] MEDS: traZODone HCL 50 MG TABLET (FP) PO SCH (21:51)
[2024-06-05] MEDS: MELATONIN 5 MG TABLETS PO SCH (21:52)
[2024-06-06] MEDS: PRENATAL VITAMINS W/ FOLIC ACID TABLET (FP) PO SCH (05:29)
[2024-06-06] MEDS ORDERED: methaDONE HCL 10 MG TABLET PO SCH (06:00)
[2024-06-09] MEDS: MAG HYDROX/AL HYDROX/SIMETH 30 ML UNIT-DOSE CUP PO PRN (09:58)
[2024-06-09] MEDS ORDERED: ONDANSETRON *ODT* 4 MG TABLET SL PRN (14:44)
[2024-06-18 06:54] VITALS: RESP 16; TEMP 97.7
[2024-06-19 06:41] VITALS: BP 139/76; PULSE 64
== END 2024-06-19 09:37 | disposition home or self-care (01) | DRG 772 ==
LOC: YASAS 12:08 → Y3NR 12:11 → Y3W 06-06 10:26
PROVIDERS: ADMIT Psychiatry & Neurology Pain Medicine; ATTEND Psychiatry & Neurology Pain Medicine
PROC: HZ42ZZZ Group Counseling for Substance Abuse Treatment, Cognitive-Behavioral (ICD-10-PCS; principal; 2024-06-05)
DX: F11.20 Opioid dependence, uncomplicated (principal); F10.20 Alcohol dependence, uncomplicated; F14.20 Cocaine dependence, uncomplicated; F12.20 Cannabis dependence, uncomplicated; F41.9 Anxiety disorder, unspecified; G47.00 Insomnia, unspecified; J45.20 Mild intermittent asthma, uncomplicated; Z87.891 Personal history of nicotine dependence
CPT/HCPCS: 80305; 87811